=== PATIENT | female | born 1960 | race Caucasian/White ===

== ENCOUNTER 2022-01-25 19:52 | Emergency (ER) | payer BC, SELFPAY ==
--- NOTE | 2022-01-25 19:53 | ED.FEMALEGU ---
HPI - Female Genitourinary General Chief complaint: Urogenital-Female Stated complaint: uti complaint Time Seen by Provider: 01/25/22 19:53 Source: patient Mode of arrival: ambulatory Limitations: no limitations History of Present Illness HPI Narrative: Ms. Shah is a 61-year-old female patient presenting to the clinic today with complaints of possible UTI. She reports that yesterday she developed some burning with urination and some low back pain. Denies any fever or chills. States that the burning was worse today when she got off work Related Data Home Medications Medication Instructions Recorded Confirmed fluoxetine 20 mg tablet 20 mg DAILY 01/25/22 01/25/22 metoprolol tartrate 25 mg tablet 25 mg DAILY 01/25/22 01/25/22 Allergies Allergy/AdvReac Type Severity Reaction Status Date / Time morphine Allergy HIVES Verified 01/25/22 20:06 MACROLIDES Allergy Uncoded 01/25/22 20:06 ERYTHROMYCIN (Generic AdvReac Intermediate NAUSEA/VOMI Uncoded 01/25/22 20:06 Allergy) TING Review of Systems Review of Systems: Pertinent positives per HPI. Patient denies any fever, chills, rash, headache, visual changes, dizziness, cough, runny nose, sore throat, shortness of breath, chest pain, palpitations, nausea, vomiting, diarrhea, constipation, abdominal pain. PMFSH Comments At the time of my signature, I reviewed and agree with the nursing past medical, surgical, social, and family history. There is no relevant family history pertinent to the patient complaint. Exam Narrative: General: Well-developed, obese, in no apparent distress. Head: Normocephalic, atraumatic. Cardio: Regular rate and rhythm, s1 and s2 normal, no murmur appreciated. Resp: Clear to auscultation bilaterally, no rhonchi, rales, wheezing or rubs. Abdomen: Soft, pliable, bowel sounds present in all quadrants, tender to palpation very the bladder, no organomegly, no CVAT tenderness. Course Course Emergency Course: Portions of this record may have been created with voice recognition software. Level of Care: Express Care Visit Vital Signs Vital signs: Vital signs reviewed MDM - Female Genitourinary MDM Narrative Medical decision making narrative: At the time of visit patient is resting comfortably on the exam table. UA is positive for leukocytes, blood, and protein. I will send a prescription for some Macrobid and some Pyridium for the patient. Supportive measures were discussed with the patient she voiced understanding of the discharge instructions and agrees to treatment plan. Differential Diagnosis Differential diagnosis: Likely urinary tract infection and cystitis Discharge Plan Discharge Clinical Impression: Acute cystitis Qualifiers: Hematuria presence: with hematuria Qualified Code(s): N30.01 - Acute cystitis with hematuria Patient Disposition: Home, Self-Care Condition: Stable Instructions: Antibiotic Form, Urinary Tract Infection in Women (ED) Additional Instructions: U/A shows positive protein, blood, and leukocytes. We will send for urine culture Take macrobid and pyridium as directed Increase fluids and stay well hydrated Wipe front to back. May use wet wipes. Avoid tub baths If sexually active- pee before and after intercourse. Wear cotton panties Avoid tight clothing up against the genitals Follow up with your PCP in 1 week if symptoms persist. Prescriptions: New nitrofurantoin macrocrystal 100 mg capsule 100 mg PO Q12H 5 Days Qty: 10 0RF Rx Instructions: must administer with a meal/food phenazopyridine [Pyridium] 200 mg tablet 200 mg PO TID PRN (Reason: pain) Qty: 6 0RF No Action fluoxetine 20 mg tablet 20 mg DAILY metoprolol tartrate 25 mg tablet 25 mg DAILY Follow-up/Referrals: PHYSICIAN,VENEER DRIER TAILER [Primary Care Provider] - Time of Disposition: 20:14 Quality NIHSS Nursing Documentation ED NIHSS nursing documentation: reviewed/agree
[2022-01-25 20:05] VITALS: BP 148/82; PULSE 82; RESP 18; TEMP 36.5; O2SAT 97
== END 2022-01-25 20:18 | disposition home or self-care (01) ==
PROVIDERS: Emergency Provider Nurse Practitioner Family
DX: N30.01 Acute cystitis with hematuria (principal); I10 Essential (primary) hypertension; Z90.711 Acquired absence of uterus with remaining cervical stump
CPT/HCPCS: 81003; 87077; 87086; 87186; 99213; G0463

== ENCOUNTER 2023-09-21 09:41 | Outpatient (CLI) | payer BC, SELFPAY ==
--- NOTE | 2023-09-26 18:33 | WPDHOMESLEEP ---
Sleep Study - Home Unattended Date of Study: 09/21/23 Ordering Provider: Nati Joseph NP Interpreting Provider: Natalie Kendall, DO Home Sleep Study Type: Watch PAT Height: 1.57 m Weight: 83.461 kg Body Mass Index: 33.6 Neck Circumference (inches): 15 [place]: 17 Reason for Sleep Study Daytime hypersomnia Sleep History The patient is a 63-year-old female with hypertension, osteoarthritis, nightmares and anxiety that had a sleep study ordered by her primary care for evaluation sleep apnea. The patient denies awakening from sleep short of breath. She denies awakening at night with heartburn, belching or cough. She occasionally snores but it is rarely loud enough that others complain. She denies having trouble sleeping when she has a cold. She denies waking up gasping for air throughout the night. She denies having breathing problems at night observed by herself or others. She rarely sweats excessively at night. She denies having heart palpitations or irregular heartbeats during the night. She frequently falls asleep during the day but never while driving. She denies sleep paralysis, cataplexy and hypnagogic / hypnopompic hallucinations. She frequently has trouble at school or work due to sleepiness. She denies feeling afraid of going to sleep. She occasionally has nightmares and occasionally remembers her dreams. She constantly has thoughts racing through her mind. She denies feeling sad or depressed. She rarely has anxiety. She rarely has muscular tension. She denies noticing parts of her body jerk. She denies kicking during the night. She rarely has crawling and aching feelings in her legs and never has leg pain during the night. She denies grinding her teeth during sleep and denies awakening with morning jaw pain. She is occasionally bothered by pain during the day and occasionally awakened by pain during the night. She occasionally wakes up feeling stiff in the morning. She constantly wakes up with sore or achy muscles. She constantly wakes up with pain in the neck, spine and other joints. She goes to bed at 11:00 p.m. on both weekdays and weekends. She wakes up 3 times throughout the night to urinate and take out her puppies. She is able to fall back asleep within 10-15 minutes. She wakes up at 5:30 a.m. on weekdays and at 6:00 a.m. on the weekends. She typically gets 6-8 hours of sleep per night. She does not stay in bed after waking up in the morning. She currently lives with her . She will consume caffeinated tea within 2 hours of going to bed. She denies engaging in physical exercise before bedtime. She will watch television before falling asleep. She will take naps in the afternoon or the evening but they are not refreshing. She consumes 2 cups of caffeinated coffee and 2 cups of ice tea per day. She denies tobacco, alcohol and recreational drug use. [facility] Past Medical History Medical History Acute sinusitis Anxiety Arthritis B12 deficiency BMI 32.0-32.9,adult BMI 33.0-33.9,adult Decreased exercise tolerance Dysuria Encounter to establish care Hyperlipidemia Hypersomnia Hypertension Osteoarthritis involving multiple joints on both sides of body Otitis externa Palpitations Prediabetes Screening for diabetes mellitus Snoring Family History Family History Daughter Asthma Depression Anxiety Mother Heart disease Thyroid disease Cancer Father Heart disease Cancer Hypertension Sibling Anxiety Depression Thyroid disease Hypertension Cancer Social History Social History Smoking status: Never smoker Alcohol intake: current Alcohol use details: Rarely Substance use: never Substance use type: does not use Lack of Transportation: No Lack of Food: Never True Current Housing: I Have
[2023-09-26 18:41] VITALS: BMI 33.6
== END 2023-09-25 07:00 | disposition home or self-care (01) ==
PROVIDERS: PCP Nurse Practitioner Family; Visit Provider Nurse Practitioner Family
DX: R06.83 Snoring (principal); G47.33 Obstructive sleep apnea (adult) (pediatric)
CPT/HCPCS: 95800

== ENCOUNTER 2023-10-10 10:02 | Outpatient (CLI) | payer BC, SELFPAY ==
--- NOTE | 2023-10-16 10:17 | WPDHOLTEREM ---
Holter/Event Monitor Holter/Event Monitor Date of procedure: 10/10/23 Holter/Event Procedure: 24 Hr Holter Monitor Indications: Palpitations Conclusion: 1. 24 hour holter monitor on 10/10/23. 2. Underlying rhythm is sinus rhythm. HR range 57-112 bpm; average HR 75 bpm. 3. There are 16 premature supraventricular complexes and 2 supraventricular couplets. No supraventricular tachycardia. 4. There are 93 premature ventricular complexes. No ventricular tachycardia. 5. No sinoatrial or atrioventricular blocks. No significant pauses greater than 2 seconds. 6. Patient reports symptoms of heavy heart beats which demonstrate sinus rhythm, HR range 85-106 bpm.
== END 2023-10-10 10:03 | disposition home or self-care (01) ==
LOC: ANHCARD 10:05
PROVIDERS: PCP Nurse Practitioner Family; Visit Provider Nurse Practitioner Family
DX: R00.2 Palpitations (principal)
CPT/HCPCS: 93225; 93226

== ENCOUNTER 2024-01-22 14:31 | Outpatient (CLI) | payer BC, SELFPAY ==
--- NOTE | ~2024-01-22 | MM_ITS ---
EXAMINATION: MM screening yefri BI w [facility] HISTORY: Screening TECHNIQUE: Craniocaudal and mediolateral oblique 3-D tomosynthesis images were obtained and synthetic 2-D images were generated. CAD analysis was submitted and interpreted. COMPARISON: 11/28/2008 BREAST PARENCHYMAL COMPOSITION: Not dense: There are scattered areas of fibroglandular density. FINDINGS: There is no evidence of suspicious mass, calcification, or architectural distortion to sugg est malignancy in either breast. There has been no suspicious interval change. IMPRESSION: 1. No mammographic evidence of malignancy. 2. Recommend routine screening mammography in one year. BI-RADS Category 1: Negative Reviewed, dictated and finalized at location B.
== END 2024-01-22 14:32 ==
LOC: MICIMG 14:32
PROVIDERS: PCP Nurse Practitioner Family; Visit Provider Nurse Practitioner Family
DX: Z12.31 Encounter for screening mammogram for malignant neoplasm of breast (principal)
CPT/HCPCS: 77063; 77067

== ENCOUNTER 2024-09-10 09:39 | Outpatient (CLI) | payer BC, SELFPAY ==
--- NOTE | ~2024-09-10 | CT_ITS ---
EXAMINATION: CT abdomen pelvis w con DATE: 09/10/2024 10:01 INDICATION: Pelvic and perineal pain. TECHNIQUE: Computed tomography (CT) of the abdomen and pelvis was performed with 100 mL Omnipaque 350 intravenous contrast. Automated exposure control and iterative reconstruction technique were employe d. The dose-length product was 920.10 mGy-cm. COMPARISON: None. FINDINGS: The visualized portions of the lung bases are clear without pneumonia or pleural effusion. The heart size is normal. No pericardial effusion. There is a lap band around the proximal stomach. T he liver, gallbladder, spleen, pancreas, adrenal glands, and kidneys are normal. There are no dilated loops of bowel. The appendix is normal. There are no pathologically enlarged lymph nodes. There is n o free intraperitoneal fluid. There is mild lumbar spondylosis and moderate thoracic spondylosis. The re is mild osteoarthritis of the hips. IMPRESSION: 1. No specific etiology for the patient's symptoms. Reviewed, dictated and finalized at location A.
--- OUTSIDE RECORDS SUMMARY | 2024-09-10 10:36 | XMS_ITS | Referral Summary ---
Author Organization [facility] Address [address] [place] [address] Care Team Providers Care Collection Advisor Name Role Phone Nati Joseph KRISTEN Primary Care Provider [phone] Encounters Date Type Department Care Team Description 08/14/2024 Telephone [facility] Cardiology [address] [facility] 8[address] [place] [address] [place] [address] Hernan Stallings MD from Last 3 Months Allergies Active Allergy Reactions Criticality Noted Date Comments Erythromycin Opioids - Morphine Analogues Medications FLUoxetine (PROzac) 40 mg capsule Take 1 capsule (40 mg total) by mouth daily Active metoprolol tartrate (LOPRESSOR) 25 mg immediate release tablet Take 1.5 tablets (37.5 mg total) by mouth 2 (two) times a day 08/14/2017 Active kqumuhrq-kzr-uj on-FA-vit K-lut 8 mg iron-400 mcg-50 mcg tablet Take 1 tablet by mouth daily Active melatonin 3 mg tablet,disinteg rating Take 6 mg by mouth nightly Active zozsgeav-ykz-vd lic acid-biotin 66.7-1,000 mcg tablet Take 2 tablets by mouth daily Active rosuvastatin (CRESTOR) 20 mg tablet Take 1 tablet (20 mg total) by mouth daily 30 tablet 11 10/23/2023 5 Active Active Problems Problem Noted Date Diagnosed Date Lumbago 08/17/2010 Herniated lumbar intervertebral disc 08/17/2010 Palpitations 01/13/2009 Essential hypertension 01/13/2009 Hyperlipidemia 01/13/2009 Social History Tobacco Use Types Packs/Day Years Used Date Smoking Tobacco: Never Tobacco Cessation:Counseling Given: Not Answered Personal Safety Answer Date Recorded Getting School Help Needed Not on file 09/09 Comments Unknown Sex and Gender Information Value Date Recorded Sex Assigned at Not on file 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 Gender Identity Not on file Sexual Orientation Not on file Last Filed Vital Signs Vital Sign Reading Time Taken Comments Blood Pressure 124/84 10/23/2023 8:46 AM CDT Pulse 67 10/23/2023 8:46 AM CDT Temperature - - Respiratory Rate - - Oxygen Saturation 97% 10/23/2023 8:46 AM CDT Inhaled Oxygen Concentration - - Weight 84 kg (185 lb 4 oz) 10/23/2023 8:46 AM CD T Height 157.5 cm (5' 2 ) 10/23/2023 8:46 AM CDT Body Mass Index 33.88 10/23/2023 8:46 AM CDT Plan of Treatment Not on file Procedures Procedure Name Priority Date/Time Associated Diagnosis Comments SCREENING MAMMOGRAM Routine 03/06/2013 1 1:32 AM CDT from Last 3 Months or Most Recently Relevant to Health Maintenance Results * Screening Mammogram (03/06/2013 11:32 AM CDT) Anatomical Region Laterality Modality Breast N/A Mammography 03/06/2013 11:3 2 AM CDT Narrative 03/07/2013 12:51 PM CDT EMILIA SCHWARTZ M.D. FINAL REPORT ACC# Date Time Exam [id number] Mar 06, 2013 11:32:00 BMV [id number] [place] Screening Mamm Technologist(s): Conchita Durant; ; EXAMINATION: Mammogram Findings: A Full-Field Digital Screening Mammogram was performed. Views obtained: bilateral craniocaudal; bilateral mediolateral oblique. Computer Aided Detection was performed with BuzzStarter.3 version 9.3. There are scattered fibroglandular densities. There is no suspicious abnormality in either breast. IMPRESSION: Annual screening mammography is recommended. OVERALL FINAL ASSESSMENT: BI-RADS CATEGORY 1: Negative. Requested By: Jimmy Soto M.D. Dictated By: EMILIA SCHWARTZ M.D. on Mar 07 2013 12:51P This document has been electronically signed by: EMILIA SCHWARTZ M.D. on Mar 07 2013 12:51P Procedure Note Provider, MD Clinton - 10/08/2016 EMILIA SCHWARTZ M.D. FINAL REPORT ACC# Date Time Exam [id number] Mar 06, 2013 11:32:00 BMV [id number] [place] Screening Mamm Technologist(s): Conchita Durant; ; EXAMINATION: Mammogram Findings: A Full-Field Digital Screening Mammogram was performed. Views obtained: bilateral craniocaudal; bilateral mediolateral oblique. Computer Aided Detection was performed with BuzzStarter.3 version 9.3. There are scattered fibroglandular densities. There is no suspicious abnormality in either breast. IMPRESSION: Annual screening mammography is recommended. OVERALL FINAL ASSESSMENT: BI-RADS CATEGORY 1: Negative. Requested By: Jimmy Soto M.D. Dictated By: EMILIA SCHWARTZ M.D. on Mar 07 2013 12:51P This document has been electronically signed by: EMILIA SCHWARTZ M.D. on Mar 07 2013 12:51P Historical Provider MD ISSA MAMMO PROCEDURES Jackie l Result from Last 3 Months or Most Recently Relevant to Health Maintenance Insurance [facility] ACCESS CHOICE Care Teams Collection Advisor Relationship Specialty Start Date End Date Nati Joseph NP [address] [address] [place] [address] PCP - General Family Medicine 09/10/23
--- OUTSIDE RECORDS SUMMARY | 2024-09-10 10:36 | XMS_ITS | Clinical Summary ---
Author Organization [facility] Address [address] [place] [address] Care Team Providers Care Public Health Educator Name Role Phone Nati Joseph KRISTEN Primary Care Provider [phone] Allergies Active Allergy Reactions Criticality Noted Date Comments Erythromycin Opioids - Morphine Analogues Medications FLUoxetine (PROzac) 40 mg capsule Take 1 capsule (40 mg total) by mouth daily Active metoprolol tartrate (LOPRESSOR) 25 mg immediate release tablet Take 1.5 tablets (37.5 mg total) by mouth 2 (two) times a day 08/14/2017 Active ibrvlscv-gjc-gc on-FA-vit K-lut 8 mg iron-400 mcg-50 mcg tablet Take 1 tablet by mouth daily Active melatonin 3 mg tablet,disinteg rating Take 6 mg by mouth nightly Active vcnfsfqn-qnt-wz lic acid-biotin 66.7-1,000 mcg tablet Take 2 tablets by mouth daily Active rosuvastatin (CRESTOR) 20 mg tablet Take 1 tablet (20 mg total) by mouth daily 30 tablet 11 10/23/2023 5 Active Active Problems Problem Noted Date Diagnosed Date Lumbago 08/17/2010 Herniated lumbar intervertebral disc 08/17/2010 Palpitations 01/13/2009 Essential hypertension 01/13/2009 Hyperlipidemia 01/13/2009 Encounters Date Type Department Care Team Description 08/14/2024 Telephone [facility] Cardiology [address] [facility] 8th [place] [address] [place] [address] Hernan Stallings MD from Last 3 Months Social History Tobacco Use Types Packs/Day Years Used Date Smoking Tobacco: Never Tobacco Cessation:Counseling Given: Not Answered Personal Safety Answer Date Recorded Getting School Help Needed Not on file 09/09 Comments Unknown Sex and Gender Information Value Date Recorded Sex Assigned at Not on file 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 Gender Identity Not on file Sexual Orientation Not on file Obstetrics History Last Filed Vital Signs Vital Sign Reading [...] 10/23/2023 8:46 AM CDT Plan of Treatment Health Maintenance Due Date Last Done Comments Cervical Cancer Screening 1961 Colon Cancer Screening-Colonoscopy 1961 Depression Screening 1961 Hepatitis C Screening 1961 DTaP/Tdap/Td Vaccine (1 - Tdap) 1972 Hepatitis B Screening 1979 Regular Well Visit/Exam 18-64 1979 Zoster Vaccine (1 of 2) 2011 Breast Cancer Screening-Mammogram 09/16/2022 09/16/2021, 09/16/2021, 09/12/2021, Additional history exists Influenza Vaccine (#1) 2024 Pneumococcal vaccine <65 Aged Out No longer eligible based on patient's age to complete this topic Procedures Procedure Name Priority Date/Time Associated Diagnosis Comments SCREENING MAMMOGRAM Routine 03/06/2013 1 1:32 AM CDT from Last 3 Months or Most Recently Relevant to Health Maintenance Results * Screening Mammogram (03/06/2013 11:32 AM CDT) Anatomical Region Laterality Modality Breast N/A Mammography 03/06/2013 11:3 2 AM CDT Narrative 03/07/2013 12:51 PM CDT EMILIA SCHWARTZ M.D. FINAL REPORT ACC# Date Time Exam [id number] Mar 06, 2013 11:32:00 BMV [id number] [place] Screening Mamm Technologist(s): Conchita Durant; ; EXAMINATION: Mammogram Findings: A Full-Field Digital Screening Mammogram was performed. Views obtained: bilateral craniocaudal; bilateral mediolateral oblique. Computer Aided Detection was performed with Prime Focus 1.3 version 9.3. There are scattered fibroglandular densities. [...] M.D. FINAL REPORT ACC# Date Time Exam [id number] Mar 06, 2013 11:32:00 BMV [id number] [place] Screening Mamm Technologist(s): Conchita Durant; ; EXAMINATION: Mammogram Findings: A Full-Field Digital Screening Mammogram was performed. Views obtained: bilateral craniocaudal; bilateral mediolateral oblique. Computer Aided Detection was performed with Prime Focus 1.3 version 9.3. There are scattered fibroglandular densities. [...] Most Recently Relevant to Health Maintenance Insurance [employer] ACCESS CHOICE Care Teams Public Health Educator Relationship Specialty Start Date End Date Nati Joseph NP [address] [facility] [address] [place] [id number] PCP - General Family Medicine 09/10/23
== END 2024-09-10 09:40 | disposition home or self-care (01) ==
PROVIDERS: PCP Nurse Practitioner Family; Visit Provider Nurse Practitioner Family
DX: R10.2 Pelvic and perineal pain (principal); R10.30 Lower abdominal pain, unspecified
CPT/HCPCS: 74177; Q9967

== ENCOUNTER 2025-04-24 15:26 | Outpatient (CLI) | payer BC, SELFPAY ==
--- NOTE | ~2025-04-24 | XR_ITS ---
EXAM/PROCEDURE: XR sacrum coccyx min 2V HISTORY: M53.3 - Sacrococcygeal disorders, not elsewhere classified COMPARISON: None available. TECHNIQUE: Sacrococcygeal x-rays FINDINGS: No acute or aggressive bony or soft tissue process seen in the sacrococcygeal bones. Degenerative changes present throughout the visualized portion of lumbar spine with what appears to be mild multilevel anterolisthesis, including L2 on L3 and L3 on L4. Sclerotic changes are present in the posterior elements throughout the mid and lower lumbar spine as well. IMPRESSION: No discrete abnormality seen in the sacrococcygeal bones. Multilevel degenerative changes noted in the visualized portions of the lumbar spine. Reviewed, dictated and finalized at location A. R [facility] IMPRESSION: No discrete abnormality seen in the sacrococcygeal bones. Multilevel degenerati ve changes noted in the visualized portions of the lumbar spine.
--- OUTSIDE RECORDS SUMMARY | 2025-04-24 15:29 | XMS_ITS | Clinical Summary ---
Author Organization [facility] Address [address] [place] [address] Care Team Providers Care Sterile Processing Manager Name Role Phone Nati Joseph KRISTEN Primary Care Provider [phone] Allergies Active Allergy Reactions Criticality Noted Date Comments Erythromycin Opioids - Morphine Analogues Medications FLUoxetine (PROzac) 40 mg capsule Take 1 capsule (40 mg total) by mouth daily Active metoprolol tartrate (LOPRESSOR) 25 mg immediate release tablet Take 1.5 tablets (37.5 mg total) by mouth 2 (two) times a day 08/14/2017 Active qmcqopdb-eyp-ld on-FA-vit K-lut 8 mg iron-400 mcg-50 mcg tablet Take 1 tablet by mouth daily Active melatonin 3 mg tablet,disinteg rating Take 6 mg by mouth nightly Active qdbkfxzp-snu-df lic acid-biotin 66.7-1,000 mcg tablet Take 2 tablets by mouth daily Active rosuvastatin (CRESTOR) 20 mg tablet Take 1 tablet (20 mg total) by mouth daily 30 tablet 11 10/23/2023 Active Active Problems Problem Noted Date Diagnosed Date Lumbago 08/17/2010 Herniated lumbar intervertebral disc 08/17/2010 Palpitations 01/13/2009 Essential hypertension 01/13/2009 Hyperlipidemia 01/13/2009 Encounters Date Type Department Care Team Description 04/08/2025 Telephone [facility] Medicine Cardiology [address] [facility] [address] [place] [address] Hernan Stallings MD Med Refill 04/07/2025 Telephone [facility] [address] [facility] 8th [place] [address] [place] [address] Hernan Stallings MD from Last 3 Months Social History Tobacco Use Types Packs/Day Years Used Date Smoking Tobacco: Never Tobacco Cessation:Counseling Given: Not Answered Personal Safety Answer Date Recorded Getting School Help Needed Not on file 09/09 Comments Unknown Sex and Gender Information Value Date Recorded Sex Assigned at Not on file 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 FINAL REPORT ACC# Date Time Exam [id number] Mar 06, 2013 11:32:00 BMV [id number] [place] Screening Mamm Technologist(s): Conchita Durant; ; EXAMINATION: Mammogram Findings: A Full-Field Digital Screening Mammogram was performed. Views obtained: bilateral craniocaudal; bilateral mediolateral oblique. Computer Aided Detection was performed with [employer] Systems 1.3 version 9.3. There are scattered fibroglandular [...] M.D. FINAL REPORT ACC# Date Time Exam [id number] Mar 06, 2013 11:32:00 BMV [id number] [place] Screening Mamm Technologist(s): Conchita Durant; ; EXAMINATION: Mammogram Findings: A Full-Field Digital Screening Mammogram was performed. Views obtained: bilateral craniocaudal; bilateral mediolateral oblique. Computer Aided Detection was performed with On[employer] Entelo 1.3 version 9.3. There are scattered fibroglandular densities. There is no suspicious abnormality in either breast. IMPRESSION: Annual screening mammography is recommended. OVERALL FINAL ASSESSMENT: BI-RADS CATEGORY 1: Negative. Requested By: Jimmy Soto M.D. Dictated By: EMILIA SCHWARTZ M.D. on Mar 07 2013 12:51P This document has been electronically signed by: MEILIA SCHWARTZ M.D. on Mar 07 2013 12:51P us Historical Provider MD ISSA MAMMO PROCEDURES Jackie l Result from Last 3 Months or Most Recently Relevant to Health Maintenance Insurance [employer] ACCESS CHOICE Care Teams Sterile Processing Manager Relationship Specialty Start Date End Date Nati Joseph NP [address] [facility] [address] [place] [id number] PCP - General Family Medicine 09/10/23
--- OUTSIDE RECORDS SUMMARY | 2025-04-24 15:29 | XMS_ITS | Data Portability ---
Author Organization [employer] [facility] , [facility] Address [address] [place] [address] Assessment No assessment recorded. Plan of Treatment Reminders Order Date Submit Date Provider Last Modified By Organization Details Last Modified Time Details Appointments None recorded. Lab bacterial vaginosis + vaginitis panel, vaginal 2024 025 [facility], [address] [place], [address], 5 08:35:13 HPV E6+E7 mRNA, qualitative PCR, cervix 2024 025 [facility], [address] [place], [address], 5 15:39:46 pap, LB 2024 025 [facility], [address] [facility], [place], [address], 5 15:18:40 Referral None recorded. Procedures None recorded. Surgeries None recorded. Imaging MAMMO, screening, digital, bilateral 2024 025 [facility] ([facility]), [address] [place], [address], 5 17:18:18 Medication Orders None recorded. Patient TargetsNo targets recorded. Patient Instructions Encounter Date Encounter Id Patient Instructions Last Modified By Organization Details Last Modified Time 09/22/2024 [id number] body mass index: care instructions Not available 09/22/2024 10:33:40 A healthy lifestyle: care instructions Not available 09/22/2024 10:33:40 Following the [employer] Food Guide: Care Instructions Not available 09/22/2024 10:33:40 exercise program : getting started Not available 09/22/2024 10:33:40 mammogram: about this test Not available 09/22/2024 10:33:40 contraception information Not available 09/22/2024 10:33:40 Reason for Referral None Reported. Results Created Date Observation Date Name Description Value Unit Range Abnormal Flag Note LastModifiedBy Organization Detail LastModifiedTime 09/23/1909/23/2024 HPV HIGH RISK HPV high risk Negati ve negati ve normal The HPV High Risk assay is inten ded for use as co-te sting with cytol ogy and not as a subst itute for regul ar cervi patrica cytol ogy scree mukul. This assay is not inten ded for use as a scree mukul devic e for women under age 30 with simon l cervi patrica cytol ogy. Not Available [facility] [address] [place], [address], 09/23/2024 15:39:46 09/23/19 25 09/25/2024 THINP REP TIS PAP clinical information: normal None given Not Available [facility] [place] [address] [place], [address], 09/25/2024 15:18:40 09/23/19 25 09/25/2024 THINP REP TIS PAP LMP: normal NONE GIVEN Not Available [facility] [address] [place] [address] [place], [address], 09/25/2024 15:18:40 09/23/19 25 09/25/2024 THINP REP TIS PAP prev. Pap: normal NONE GIVEN Not Available [facility] [address] [place] [address] [place], [address], 09/25/2024 15:18:40 09/23/19 25 09/25/2024 THINP REP TIS PAP prev. BX: normal NONE GIVEN Not Available [address] [address] [place], [address], 09/25/2024 15:18:40 09/23/19 25 09/25/2024 THINP REP TIS PAP source: normal Cervi x Not Available [address] [address] [place], [address], 09/25/2024 15:18:40 09/23/19 25 09/25/2024 THINP REP TIS PAP statement of adequacy: normal Satis facto ry for evalu ation . Endoc ervic al/tr ansfo rmati on zone compo nent prese nt. Not Available [address] [address] [place], [address], 09/25/2024 15:18:40 09/23/19 25 09/25/2024 THINP REP TIS PAP interpretati on/result: normal Cytol ogy Resul ts: Negat jabier for intra epith elial lesio n or malig yosef . Not Available [address] [address] [place], [address], 09/25/2024 15:18:40 09/23/19 25 09/25/2024 THINP REP TIS PAP comment: normal This Pap test has been evalu ated with compu ter mike gwendolyn techn ology . Not Available [address] [address] [place], [address], 09/25/2024 15:18:40 09/23/19 25 09/25/2024 THINP REP TIS PAP cytotechnolo gist: normal MMD, CT( CP) CT Scree mukul Locat ion: [place] [address] [address] [facility] , [place] [address] Not Available [address] [address] [place], [address], 09/25/2024 15:18:40 09/23/19 25 09/25/2024 THINP REP TIS PAP comment EXPLA NATOR Y NOTE: The Pap is a scree mukul test for cervi patrica cance r. It is not a diagn ostic test and is subje ct to false negat jabier and false posit jabier resul ts. It is most relia ble when a satis facto ry sampl e, regul inga obtai hoda, is submi tted with relev ant clini patrica findi ngs and histo ry, and when the Pap resul t is evalu ated along with histo anne-marie and curre nt clini patrica infor matio n. Not Available [facility] [address], [place], [address], 09/25/2024 15:18:40 09/23/19 25 09/25/2024 VAGIN ITIS PANEL bacterial vaginosis BV POS negati ve abnormal Not Available [address], [address], 09/26/2024 08:35:13 09/23/19 25 09/25/2024 VAGIN ITIS PANEL kati species C. spp neg negati ve normal Not Available [facility] [address] [place] [address], [address], 09/26/2024 08:35:13 09/23/19 25 09/25/2024 VAGIN ITIS PANEL kati glabrata C. gla neg negati ve normal Not Available [facility] [address] [place] [address], [address], 09/26/2024 08:35:13 09/23/19 25 09/25/2024 VAGIN ITIS PANEL trichomonas vaginalis CV/TV TRICH neg negati ve normal Not Available [facility] [address] [place], [address], 09/26/2024 08:35:13 04/16/20 25 04/03/2025 MAMMO , scree mukul, digit al, bilat eral No observ ation record ed. [facility] ([facility]) [address] [place], [address], 04/16/2025 17:45:31 Result Notes None recorded. Procedures Surgical History Date Name Laterality Status Provider Name and Address Organization Details Recorded Time 06/18/19 24 Most Recent Mammogram completed [facility] 09/22/2024 09:59:11 06/18/19 22 Date of Last Pap Smear completed [facility]/22/2024 09:59:11 06/18/19 18 Most Recent Bone Density completed [facility] IV 09/22/2024 09:59:11 Colonoscopy completed [facility] IV 09/22/2024 09:59:12 D & C completed [facility] 09/22/2024 09:59:12 Vaginal hysterectomy completed [facility] 09/22/2024 09:59:12 Endometrial Ablation completed [facility] 09/22/2024 09:59:12 Removal of Ovaries completed [facility] 09/22/2024 09:59:12 C Section completed [facility] 09/22/2024 09:59:12 Imaging Results None recorded. Procedure Notes None recorded. Medical Equipment None Reported. Allergies Allergen ID Allergen Name Allergen Category Reaction Reaction Severity Criticality Documentation Date Start Date Code Code System Note Provider Name and Address Organization Details Recorded Time 248461 morphine medicatio n Not available Not available Not available 09/22/2024 7052 RxNorm [facility] 09:59:11 795529 Substance with morphinan structure and opioid receptor agonist mechanism of action (substanc e) medicatio n Not available Not available Not available 09/22/2024 82641 9000 SNOMED EBONI MADRID NP [address] [place], [address], [facility] 5 10:07:42 043015 erythromy césar medicatio n Not available Not available Not available 09/22/2024 4053 RxNorm EBONI MADRID NP [address] [place], [address], [facility] IV 10:07:44 Medications Name Sig Start Date Stop Date Status Note LastModified by Organization Details LastModified Time fluoxetine 40 mg capsule TAKE 1 CAPSULE BY MOUTH DAILY active Not Available Not Available No t Available fluconazole 150 mg tablet TAKE 1 TABLET BY MOUTH EVERY DAY FOR 1 DAY active Not Available Not Available No t Available metoprolol succinate ER 100 mg tablet,exte nded release 24 hr TAKE 1 TABLET BY MOUTH DAILY active Not Available Not Available No t Available metronidazo le 500 mg tablet TAKE 1 TABLET BY MOUTH EVERY 12 HOURS FOR 7 DAYS active Not Available Not Available No t Available amoxicillin 875 mg-potassiu m clavulanate 125 mg tablet TAKE 1 TABLET BY MOUTH EVERY 12 HOURS 09/22 completed Not Available Not Available Not Available metoprolol tartrate 25 mg tablet TAKE 1 AND 1/2 TABLETS BY MOUTH TWICE DAILY 09/22 completed Not Available Not Available Not Available nitrofurant oin monohydrate /macrocryst als 100 mg capsule TAKE 1 CAPSULE BY MOUTH EVERY 12 HOURS 09/22 completed Not Available Not Available Not Available Zepbound 2.5 mg/0.5 mL subcutaneou s pen injector ADMINISTE R 2.5 MG UNDER THE SKIN WEEKLY FOR 4 WEEKS active Not Available Not Available No t Available Vitals Date Recorded Body height Body mass index (BMI) Body weight Systolic And Diastolic Provider Name and Address Organization Details Last Updated DateTime 09/22/2024 157.48 cm 32.9 kg/m2 13467.63 g 128/80 mm[Hg] Cristel Kim [facility] IV 09/22/2024 10:02:01 Social History Question Answer Notes LastModified by Organizat ion Details LastModified Time Tobacco Smoking Status Never Smoker Cristel Kim [facility], [facility] IV 09/22/2024 09:59:12 If You Are , What Was Your Level Of Alcohol Consumption Prior To ? None [email or web address] Information not available 09/22/2024 How Many Years Have You Consumed Alcohol? 30 [email or web address] Information not available 09/22/2024 Are You Blind Or Do You Have Difficulty Seeing? No [email or web address] Information not available 09/22/2024 Are You Deaf Or Do You Have Serious Difficulty Hearing? No [email or web address] Information not available 09/22/2024 What Type Of Diet Are You Following? REGULAR [email or web address] Information not available 09/22/2024 What Is The Highest Grade Or Level Of School You Have Completed Or The Highest Degree You Have Received? JW08429-3 [email or web address] Information not available 09/22/2024 How Many Children Do You Have? 3 [email or web address] Information not available 09/22/2024 Are There Any Occupational Health Risks Where You Work? No [email or web address] Information not available 09/22/2024 What Is Your Relationship Status? [email or web address] Information not available 09/22/2024 Are You Sexually Active? Yes [email or web address] Information not available 09/22/2024 Sex: Unknown Functional Status Question Answer Note LastModified by Organizat ion Details LastModified Time How many times per week do you consume alcohol? Less than 1 time per week [email or web address] Information not available 09/22/2024 Do you use any illicit or recreational drugs? No [email or web address] Information not available 09/22/2024 Do you or have you ever used any other forms of tobacco or nicotine? No [email or web address] Information not available 09/22/2024 What is your level of alcohol consumption? Occasional [email or web address] Information not available 09/22/2024 Are you currently employed? Yes [email or web address] Information not available 09/22/2024 What is your exercise level? Occasional [email or web address] Information not available 09/22/2024 Mental Status None recorded. Family History Relationship Description Onset Age of this Age Resolved Age Notes LastModified by Organization Details LastModified Time Mother Hyperthyroid ism [email or web address] Not available 2024 09:59:11 Mother Depressive disorder [email or web address] Not available 2024 09:59:11 Mother Malignant neoplasm of lung [email or web address] Not available 2024 09:59:11 Mother Malignant neoplasm of colon [email or web address] Not available 2024 09:59:11 Mother Hypertensive disorder [email or web address] Not available 2024 09:59:11 Brother Hypercholest erolemia [email or web address] Not available 2024 09:59:11 Brother Malignant neoplastic disease [email or web address] Not available 04/07/ 2025 09:59:11 Brother Hypertensive disorder [email or web address] Not available 2024 09:59:11 Sister Hypercholest erolemia [email or web address] Not available 2024 09:59:11 Sister Hyperthyroid ism [email or web address] Not available 2024 09:59:11 Sister Depressive disorder [email or web address] Not available 2024 09:59:11 Sister Hypertensive disorder Not available 2024 09:59:11 Father Hypercholest erolemia Not available 2024 09:59:11 Father Myocardial infarction [email or web address] Not available 09/22 09:59:11 Father Malignant neoplastic disease [email or web address] Not available 2024 09:59:11 Father Hypertensive disorder [email or web address] Not available 2024 09:59:11 Medical History Condition Response Incontinence Y High Blood Pressure Y Arthritis Y High Cholesterol Y Frequent Urinary Tract infections Y Fibromyalgia Y Gynecological History Statement/Question Response Date of Last Colonoscopy Date of LMP 06/18/2011 Most Recent Bone Density 06/18/2017 Date of Last Pap Smear 06/18/2021 Most Recent Mammogram 06/18/2023 Current Control Method Hysterectom y Age at Menarche 12 Obstetrics History GPAL:G 3 P 3 0 0 3 Type Value Full Term 3 Living 3 Total 3 Past Encounters Encounter ID Performer Location Encounter Start Date Encounter Closed Date Diagnosis/Indication Diagnosis SNOMED-CT Code Diagnosis ICD10 Code Diagnosis IMO Codes Diagnosis Note [id number] EBONI MADRID NP [facility] [address] [place] [address] 09/22/2024 09:56:55 09/22/2024 11:20:37 Gynecologic examination 00608718 Z01.419 64 y.o. here for annual exam.- Pap - Routine labs done with PCP - Mammo rx provided - Colonoscop y done, can continue q10 years screens - DEXA at 66 - Depression screen NEG - BMI counseling , diet and exercise reviewed - RTO for annual or PRN Screening for malignant neoplasm of cervix 199657633 Z12.4 ASCCP guidelines reviewed with patient. Pap Hx: pap collected today. Pt states understand ing and is amenable to POC. Screening for malignant neoplasm of breast 505481268 Z12.31 Pt educated on breast cancer screening guidelines , and discussed recommenda luis a for scheduling imaging at hospital of her choice. Reviewed recommenda tion to have imaging done at same facility if possible as previous screenings . Pt states understand ing of POC. Depression screening 171 652838 Z13.31 refer to intake screening Contracept ion education 981932784 Z30.09 Contracept jabier counseling : Discussed options including OCPs, NuvaRing, Nexplanon, hormonal and copper IUDs. Discussed risks, efficacy, noncontrac eptive benefits, and side effects of each option, including risk of VTE with hormonal contracept ion and uterine perforatio n, expulsion, infection with IUD. Acute vaginitis 30751299 N76.0 28387 Vaginal dryness 79322530 N89.8 284865 Discussed vaginal estrogen, DHEA supplement ation. Will plan to use lubricant (rec coconut oil, astroglide or slippery stuff). Vaginal Dryness handout given to patient. Female gen ital organ symptoms 302465244 R10.2 [id number] Patient with recent UTI that was confirmed cured with PCP. patient also had ABD imaging due to the pressure with no abnormal findings per the pt. Increased frequency of urination 956606253 R35.0 493682 Fluid management : Drinking too much or too little fluid can make incontinen ce worse. You can try cutting back on fluids if you drink large amounts. Scheduled voiding: Emptying your bladder at regular intervals can help prevent stress leakage and urgency incontinen ce. You can keep a bladder diary to help you determine when you usually leak and how often you should go to the bathroom. Weight loss: If you are overweight or obese, losing weight can help with urinary incontinen ce. Diet: You can try avoiding bladder irritants like caffeine, alcohol, acidic foods, spicy foods, chocolate, artificial sweeteners , and carbonated and citrus beverages. You can also try eating more fiber to prevent constipati on. Pelvic floor exercises: You can try pelvic floor exercises to help with urinary incontinen ce. Smoking: Smoking can increase the risk of incontinen ce because coughing strains the pelvic floor muscles. Lifting: You can try to avoid lifting heavy objects Health Concerns Section Related Observation LastModified by Organization Detai ls LastModified Time None Recorded Concern Status LastModified by Organization Details LastModified Time None Recorded Advance Directives Directive None Recorded Payers Insurance Date Sequence Insurance Name Policy Number Policy Goins Covered Member ID Goins Member ID Guarantor Name 04/16/2025 1 [employer] [id number] Umu Shah [id number] Umu Shah Notes Date Note Type Note Provider Name and Address Organization Details Recorded Time 09/22/2024 text/html Annual GYNReport ed by PatientROS as noted in the HPI Umu is a 64yo new pt presents WWE. Last pap:2020. Pt had a partial Hysterectomy. Last mammogram: 2023. Last colon cancer screening: Couple yrs ago. Pt has concerns. PHQ is 11 EBONI MADRID, KRISTEN [address] [facility], [place], [address], [facility] 09/22/2024 10:53:54 OBGyn Episode Ob Episode Information Episode Created Date Number of Fetuses Patient Bloodtype Patient rh Status Prepregnancy Weight lbs Domestic Partner Domestic Partner Phone Father Name Supervisor Order Takers Status 09/20/19 25 1 DELETED Fetus Data First Name Last Name Admitted to NICU Weight (g) Sex Living Outcome Pediatric Complications Fetus ID Race Codes Race Delivery Type [id number] Juan Diego Calculation Initial Juan Diego Date Initial Exam Date Initial Exam Provider Initial Ultrasound Date Last Menstrual Period Date Ultra Sound Weeks Gestation 09/19/2024 0 Eighteen To Twenty Week Juan Diego Update Ultra Sound Date Fundal Height At Umbil Quickening Date Ultra Sound Latest Weeks Gestation Final Juan Diego Confirmed By Final Juan Diego Confirmed Date Final Juan Diego Date Ultra Sound Latest Days Gestation 0 0 Menstrual History Last Menstrual Date Menses Monthly On Bcp Conception Prior Menses Frequency Hcg Plus Date Menarche Onset Age Delivery Information Delivery Date Delivery Type Labor Anesthesia Weeks Gestation Incision Type Labor Labor Length Hrs Delivered By Post Complications Tubal Sterilization Discharge Date Comments Discharge Information Feeding Method Contraceptive Method Maternal HG B and HCT Levels
--- OUTSIDE RECORDS SUMMARY | 2025-04-24 15:29 | XMS_ITS | Encounter Summary ---
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 Role Phone Nati Joseph NP Primary Care Provider [phone] Encounter Details Date Type Department Care Team (Late st Contact Info) Description 04/07/2025 Telephone [facility] Medicine Cardiology [address] [facility] Advanced Medicine 8th [place] [address] [place] [address] Hernan Stallings MD [address] [facility] [address] [place] [address] Social History Tobacco Use Types Packs/Day Years Used Date Smoking Tobacco: Never Personal Safety Answer Date Recorded Getting School Help Needed Not on file 09/09 Comments Unknown Sex and Gender Information Value Date Recorded Sex Assigned at Not on file Legal Sex Female 11:[address] INSPECTOR Gender Identity Not on file Sexual Orientation Not on file documented as of this encounter Miscellaneous Notes * Telephone Encounter - Madhuri Hatch - 04/07/2025 10:52 AM CDT LMOR @ [phone] to see if pt wants to schedule with Dr. Stallings or [facility]ER, or see if pt is seeing adifferent doctor. * Telephone Encounter - Neo Sadler RMA - 04/07/2025 9:20 AM CDT Patient needs an appointment to get refills * Telephone Encounter - Neo Sadler RMA - 04/07/2025 9:17 AM CDT Requested Prescriptions Pending Prescriptions Disp Refills rosuvastatin (CRESTOR) 20 mg tablet 30 tablet 11 Sig: Take 1 tablet (20 mg total) by mouth daily Last provider visit: 10/23/23 Next provider visit: unknown date Preferred pharmacy: [id number] - [place] - [address] [facility] [address] [facility] [address] Was med refilled or sent back to Provider Pool for clarification? REFUSED FYI * Telephone Encounter - Haydee Cope - 04/07/2025 9:00 AM CDT Chandrakant Per pharmacy, pt is out of the rosuvastatin 20 mg. Pls send to [facility] [place] ([place]) [place] documented in this encounter Plan of Treatment Not on file documented as of this encounter Visit Diagnoses Not on filedocumented in this encounter Care Teams Water Plant Maintenance Mechanic Relationship Specialty Start Date End Date Nati Joseph NP [address] [facility] [address] [place] [address] PCP - General Family Medicine 09/10/23 documented as of this encounter
--- OUTSIDE RECORDS SUMMARY | 2025-04-24 15:29 | XMS_ITS | Clinical Summary ---
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 Name Role Phone Nati Andrews Primary Care Provider Encounters Date Type Department Care Team Description 04/03/2025 10:00 AM CDT - 04/03/2025 11:59 PM CDT Hospital Encounter [facility] [place] [address] Vic Oviedo FNP Discharge Disposition: Home or Self Care (Routine Discharge) 04/03/2025 Travel 02/09/2025 7:45 AM CDT - 02/09/2025 11:59 PM CDT Hospital Encounter [facility] [place] [address] Nati Andrews APNP Discharge Disposition: Home or Self Care (Routine Discharge) 02/09/2025 Travel from Last 3 Months Social History Tobacco Use Types Packs/Day Years Used Date Smoking Tobacco: Never Assessed Comments Unknown Sex and Gender Information Value Date Recorded Sex Assigned at Female 02/04/2025 8:27 AM CDT Legal Sex Female 7:06 PM CDT Gender Identity Not on file Sexual Orientation Not on file Plan of Treatment Health Maintenance Due Date Last Done Comments Cervical Cancer Screening Pa p Smear (Age 30 to 64) Every 3 Years 1961 Colorectal Cancer Screening Colonoscopy (10 Years) 1961 Annual Physical 1964 Hepatitis C 1979 DTaP, Tdap and Td Vaccines ( 1 - Tdap) 1980 Cervical Cancer Screening Pa p with HPV Testing (Age 30 to 64) Every 5 Years 1991 Cervical Cancer Screening wi th HPV 1991 Pneumococcal Vaccine: 50+ Years (1 of 1 - PCV) 2011 Zoster Vaccines (1 of 2) 2011 Mammogram Screening 09/17/2023 09/16/2021, 09/12/2021, 11/25/2018 COVID-19 Vaccine (2 - 2024-2 6 season) 2025 07/20/2024 Influenza Adult (#1) 2025 07/20/2024 RSV Immunization or 60+ Years (1 - 1-dose 75+ series) 2036 Hepatitis A Vaccines Aged Out No long er eligible based on patient's age to complete this topic Meningococcal B Vaccine Aged Out No l onger eligible based on patient's age to complete this topic Meningococcal Vaccine Aged Out No yg kailey eligible based on patient's age to complete this topic RSV Immunizations Under 20 Months Aged Out No longer eligible b ased on patient's age to complete this topic Procedures Procedure Name Priority Date/Time Associated Diagnosis Comments XR FOOT RT 2V Routine 04/03/2025 10:31 AM CDT Multiple joint pain XR FOOT LT 2V Routine 04/03/2025 10:31 AM CDT Multiple joint pain XR ANKLE RT 2V Routine 04/03/2025 10:31 AM CDT Multiple joint pain XR ANKLE LT 2V Routine 04/03/2025 10:31 AM CDT Multiple joint pain XR WRIST RT 2V Routine 04/03/2025 10:31 AM CDT Multiple joint pain XR WRIST LT 2V Routine 04/03/2025 10:31 AM CDT Multiple joint pain XR HAND RT 2V Routine 04/03/2025 10:31 AM CDT Multiple joint pain XR HAND LT 2V Routine 04/03/2025 10:31 AM CDT Multiple joint pain XR SI JOINTS Routine 04/03/2025 10:31 AM CDT Multiple joint pain US SOFT TISS LOW BACK OR ABD WALL Routine 02/09/2025 8:21 AM CDT Generalized intra-abdominal and pelvic swelling, mass and lump from Last 3 Months Results * XR ANKLE RT 2V (04/03/2025 10:31 AM CDT) Anatomical Region Laterality Modality Ankle Radiographic Evie ging 04/08/2025 2:58 PM CDT Impressions 04/08/2025 3:00 PM CDT IMPRESSION: 1. No acute abnormality. 2. Arthritic changes as described. Ordered By: VIC OVIEDO Interpreted By: Preet Escobedo MD, 04/08/2025 2:58 PM Narrative 04/08/2025 3:[address] PM [address] [address] Examination: XR ANKLE RT 2V, XR FOOT RT 2V Exam time: 04/03/2025 10:11 AM Clinical history: Multiple joint pain Comparison: No prior exam Technique: AP and lateral views right ankle. AP and lateral views right foot. Images obtained without weightbearing. Findings: Forefoot and hindfoot alignment is within normal limits. Ankle mortise appears unremarkable. Tibiotalar and subtalar joints appear unremarkable. There is joint space loss with some hypertrophic change involving the navicular-cuneiform and the first through fourth tarsal-metatarsal joints. No evidence of fracture or acute osseous abnormality. No evidence of focal bone lesions or periosteal reactions. Accessory ossification adjacent to the fifth metatarsal head. Procedure Note Preet Escobedo MD - 04/08/[address] [facility] [address] Examination: XR ANKLE RT 2V, XR FOOT RT 2V Exam time: 04/03/2025 10:11 AM Clinical history: Multiple joint pain Comparison: No prior exam Technique: AP and lateral views right ankle. AP and lateral views rightfoot. Images obtained without weightbearing. Findings: Forefoot and hindfoot alignment is within normal limits. Ankle mortise appears unremarkable. Tibiotalar and subtalar joints appearunremarkable. There is joint space loss with some hypertrophic change involving thenavicular-cuneiform and the first through fourth tarsal-metatarsal joints.No evidence of fracture or acute osseous abnormality. No evidence of focalbone lesions or periosteal reactions. Accessory ossification adjacent tothe fifth metatarsal head. IMPRESSION: 1. No acute abnormality. 2. Arthritic changes as described. Ordered By: VIC OVIEDO Interpreted By: Preet Escobedo MD, 04/08/2025 2:58 PM Vic Oviedo ASSISTANT FARM OPERATIONS MANAGER GENERAL IMAGING Final Result * XR ANKLE LT 2V (04/03/2025 10:31 AM CDT) Anatomical Region Laterality Modality Ankle Radiographic Evie ging 04/08/2025 3:00 PM CDT Impressions 04/08/2025 3:01 PM CDT IMPRESSION: 1. No acute abnormality identified. 2. Degenerative changes as described. Ordered By: VIC OVIEDO Interpreted By: Preet Escobedo MD, 04/08/2025 3:00 PM Narrative 04/08/2025 3:01 PM CDT [address] [address] Examination: XR ANKLE LT 2V, XR FOOT LT 2V Exam time: 04/03/2025 10:11 AM Clinical history: Multiple joint pain Comparison: No prior exam Technique: AP and lateral views left ankle. AP and lateral views left foot. Images obtained without weightbearing. Findings: Ankle mortise appears unremarkable. Tibiotalar and subtalar joints appear unremarkable. No evidence of fracture or acute osseous abnormality involving the left distal tibia, fibula, or about the left ankle. Minimal plantar and Achilles calcaneal spurring. Hypertrophic spurring dorsal aspect midfoot consistent with degenerative change involving the second through fourth tarsal-metatarsal joints. No evidence of fracture or acute osseous abnormality throughout the left foot. No evidence of abnormal soft tissue densities. Procedure Note Preet Escobedo MD - 04/08/[address] [address] Examination: XR ANKLE LT 2V, XR FOOT LT 2V Exam time: 04/03/2025 10:11 AM Clinical history: Multiple joint pain Comparison: No prior exam Technique: AP and lateral views left ankle. AP and lateral views leftfoot. Images obtained without weightbearing. Findings: Ankle mortise appears unremarkable. Tibiotalar and subtalarjoints appear unremarkable. No evidence of fracture or acute osseousabnormality involving the left distal tibia, fibula, or about the leftankle. Minimal plantar and Achilles calcaneal spurring. Hypertrophicspurring dorsal aspect midfoot consistent with degenerative changeinvolving the second through fourth tarsal-metatarsal joints. No evidenceof fracture or acute osseous abnormality throughout the left foot. Noevidence of abnormal soft tissue densities. IMPRESSION: 1. No acute abnormality identified. 2. Degenerative changes as described. Ordered By: VIC OVIEDO Interpreted By: Preet Escobedo MD, 04/08/2025 3:[address] [facility] GENERAL IMAGING Final Result * XR FOOT RT 2V (04/03/2025 10:31 AM CDT) Anatomical Region Laterality Modality Foot Radiographic Evie ging 04/08/2025 2:58 PM CDT Impressions 04/08/2025 3:00 PM CDT IMPRESSION: 1. No acute abnormality. 2. Arthritic changes as described. Ordered By: VIC OVIEDO Interpreted By: Preet Escobedo MD, 04/08/2025 2:58 PM Narrative 04/08/2025 3:00 PM CDT [place] [address] Examination: XR ANKLE RT 2V, XR FOOT RT 2V Exam time: 04/03/2025 10:11 AM Clinical history: Multiple joint pain Comparison: No prior exam Technique: AP and lateral views right ankle. AP and lateral views right foot. Images obtained without weightbearing. Findings: Forefoot and hindfoot alignment is within normal limits. Ankle mortise appears unremarkable. Tibiotalar and subtalar joints appear unremarkable. There is joint space loss with some hypertrophic change involving the navicular-cuneiform and the first through fourth tarsal-metatarsal joints. No evidence of fracture or acute osseous abnormality. No evidence of focal bone lesions or periosteal reactions. Accessory ossification adjacent to the fifth metatarsal head. Procedure Note Preet Escobedo MD - 04/08/[address] [address] Examination: XR ANKLE RT 2V, XR FOOT RT 2V Exam time: 04/03/2025 10:11 AM Clinical history: Multiple joint pain Comparison: No prior exam Technique: AP and lateral views right ankle. AP and lateral views rightfoot. Images obtained without weightbearing. Findings: Forefoot and hindfoot alignment is within normal limits. Ankle mortise appears unremarkable. Tibiotalar and subtalar joints appearunremarkable. There is joint space loss with some hypertrophic change involving thenavicular-cuneiform and the first through fourth tarsal-metatarsal joints.No evidence of fracture or acute osseous abnormality. No evidence of focalbone lesions or periosteal reactions. Accessory ossification adjacent tothe fifth metatarsal head. IMPRESSION: 1. No acute abnormality. 2. Arthritic changes as described. Ordered By: VIC OVIEDO Interpreted By: Preet Escobedo MD, 04/08/2025 2:58 PM Vic Oviedo ASSISTANT FARM OPERATIONS MANAGER GENERAL IMAGING Final Result * XR FOOT LT 2V (04/03/2025 10:31 AM CDT) Anatomical Region Laterality Modality Foot Radiographic Evie ging 04/08/2025 3:00 PM CDT Impressions 04/08/2025 3:01 PM CDT IMPRESSION: 1. No acute abnormality identified. 2. Degenerative changes as described. Ordered By: VIC OVIEDO Interpreted By: Preet Escobedo MD, 04/08/2025 3:00 PM Narrative 04/08/2025 3:01 PM CDT [address] [address] Examination: XR ANKLE LT 2V, XR FOOT LT 2V Exam time: 04/03/2025 10:11 AM Clinical history: Multiple joint pain Comparison: No prior exam Technique: AP and lateral views left ankle. AP and lateral views left foot. Images obtained without weightbearing. Findings: Ankle mortise appears unremarkable. Tibiotalar and subtalar joints appear unremarkable. No evidence of fracture or acute osseous abnormality involving the left distal tibia, fibula, or about the left ankle. Minimal plantar and Achilles calcaneal spurring. Hypertrophic spurring dorsal aspect midfoot consistent with degenerative change involving the second through fourth tarsal-metatarsal joints. No evidence of fracture or acute osseous abnormality throughout the left foot. No evidence of abnormal soft tissue densities. Procedure Note Preet Escobedo MD - 04/08/[address] [address] Examination: XR ANKLE LT 2V, XR FOOT LT 2V Exam time: 04/03/2025 10:11 AM Clinical history: Multiple joint pain Comparison: No prior exam Technique: AP and lateral views left ankle. AP and lateral views leftfoot. Images obtained without weightbearing. Findings: Ankle mortise appears unremarkable. Tibiotalar and subtalarjoints appear unremarkable. No evidence of fracture or acute osseousabnormality involving the left distal tibia, fibula, or about the leftankle. Minimal plantar and Achilles calcaneal spurring. Hypertrophicspurring dorsal aspect midfoot consistent with degenerative changeinvolving the second through fourth tarsal-metatarsal joints. No evidenceof fracture or acute osseous abnormality throughout the left foot. Noevidence of abnormal soft tissue densities. IMPRESSION: 1. No acute abnormality identified. 2. Degenerative changes as described. Ordered By: VIC OVIEDO Interpreted By: Preet Escobedo MD, 04/08/2025 3:[address] [facility] GENERAL IMAGING Final Result * XR WRIST RT 2V (04/03/2025 10:31 AM CDT) Anatomical Region Laterality Modality Wrist Radiographic Evie ging 04/08/2025 3:03 PM CDT Impressions 04/08/2025 3:05 PM CDT IMPRESSION: 1. No acute osseous abnormality. 2. Osteoarthritic degenerative changes as described. 3. Slight prominence of the space between the scaphoid and lunate bone and scapholunate ligament disruption is not excluded. Ordered By: VIC OVIEDO Interpreted By: Preet Escobedo MD, 04/08/2025 3:03 PM Narrative 04/08/2025 3:05 PM CDT [address] [address] Examination: XR WRIST RT 2V, XR HAND RT 2V Exam time: 04/03/2025 10:11 AM Clinical history: Multiple joint pain Comparison: No prior exam Technique: AP and lateral views right wrist. AP and lateral views right hand. Findings: There is no evidence of fracture or acute osseous abnormality right distal radius or ulna. No evidence of fracture or acute osseous abnormality throughout the carpal bones. There is slight prominence of the space between the scaphoid and the lunate bone and scapholunate ligament disruption is not excluded. There is moderate osteoarthritic degenerative change involving the right first carpal-metacarpal joint. There is relatively prominent osteoarthritic degenerative change involving the right first interphalangeal joint and the second through fifth DIP joints as well as the fourth and fifth PIP joints and there is minimal osteoarthritic degenerative change involving the second and third PIP joints. No evidence of fracture or acute osseous abnormality throughout the right hand. No evidence of subluxation or dislocation. Procedure Note Preet Escobedo MD - 04/08/[address] [address] Examination: XR WRIST RT 2V, XR HAND RT 2V Exam time: 04/03/2025 10:11 AM Clinical history: Multiple joint pain Comparison: No prior exam Technique: AP and lateral views right wrist. AP and lateral views righthand. Findings: There is no evidence of fracture or acute osseous abnormalityright distal radius or ulna. No evidence of fracture or acute osseousabnormality throughout the carpal bones. There is slight prominence of thespace between the scaphoid and the lunate bone and scapholunate ligamentdisruption is not excluded. There is moderate osteoarthritic degenerativechange involving the right first carpal-metacarpal joint. There isrelatively prominent osteoarthritic degenerative change involving theright first interphalangeal joint and the second through fifth DIP jointsas well as the fourth and fifth PIP joints and there is minimalosteoarthritic degenerative change involving the second and third PIPjoints. No evidence of fracture or acute osseous abnormality throughoutthe right hand. No evidence of subluxation or dislocation. IMPRESSION: 1. No acute osseous abnormality. 2. Osteoarthritic degenerative changes as described. 3. Slight prominence of the space between the scaphoid and lunate boneand scapholunate ligament disruption is not excluded. Ordered By: VIC OVIEDO Interpreted By: Preet Escobedo MD, 04/08/2025 3:[address] [facility] GENERAL IMAGING Final Result * XR WRIST LT 2V (04/03/2025 10:31 AM CDT) Anatomical Region Laterality Modality Wrist Radiographic Evie ging 04/08/2025 3:02 PM CDT Impressions 04/08/2025 3:03 PM CDT IMPRESSION: 1. No acute osseous abnormality. 2. Osteoarthritic degenerative changes as described. 3. Slight prominence scapholunate space. Scapholunate ligament disruption not excluded. Ordered By: VIC OVIEDO Interpreted By: Preet Escobedo MD, 04/08/2025 3:02 PM Narrative 04/08/2025 3:03 PM CDT [address] [address] Examination: XR WRIST LT 2V, XR HAND LT 2V Exam time: 04/03/2025 10:11 AM Clinical history: Multiple joint pain Comparison: No prior exam Technique: AP and lateral views left wrist. AP and lateral views left hand. Findings: Left distal radius and ulna appear unremarkable. No evidence of fracture or acute osseous abnormality involving the left wrist. There is moderate osteoarthritic degenerative change involving the left carpal-metacarpal joint. There is slight prominence of the scapholunate space. Scapholunate ligament disruption not excluded. There are prominent osteoarthritic degenerative changes involving the left first interphalangeal joint and the second through fifth DIP joints as well as the fourth and fifth PIP joints. This consist of joint space loss and hypertrophic spurring changes. No evidence of subluxation or dislocation. No evidence of abnormal soft tissue densities. Procedure Note Preet Escobedo MD - 04/08/[address] [address] Examination: XR WRIST LT 2V, XR HAND LT 2V Exam time: 04/03/2025 10:11 AM Clinical history: Multiple joint pain Comparison: No prior exam Technique: AP and lateral views left wrist. AP and lateral views lefthand. Findings: Left distal radius and ulna appear unremarkable. No evidence offracture or acute osseous abnormality involving the left wrist. There ismoderate osteoarthritic degenerative change involving the leftcarpal-metacarpal joint. There is slight prominence of the scapholunatespace. Scapholunate ligament disruption not excluded. There are prominent osteoarthritic degenerative changes involving the leftfirst interphalangeal joint and the second through fifth DIP joints aswell as the fourth and fifth PIP joints. This consist of joint space lossand hypertrophic spurring changes. No evidence of subluxation ordislocation. No evidence of abnormal soft tissue densities. IMPRESSION: 1. No acute osseous abnormality. 2. Osteoarthritic degenerative changes as described. 3. Slight prominence scapholunate space. Scapholunate ligament disruptionnot excluded. Ordered By: VIC OVIEDO Interpreted By: Preet Escobedo MD, 04/08/2025 3:02 PM Vic Oivedo ASSISTANT FARM OPERATIONS MANAGER GENERAL IMAGING Final Result * XR SI JOINTS (04/03/2025 10:31 AM CDT) Anatomical Region Laterality Modality Pelvis Radiographic Evie ging 04/08/2025 2:57 PM CDT Impressions 04/08/2025 2:58 PM CDT IMPRESSION: No radiographic abnormality of the sacroiliac joints. Ordered By: VIC OVIEDO Interpreted By: Preet Escobedo MD, 04/08/2025 2:57 PM Narrative 04/08/2025 2:58 PM CDT [facility] [address] [place], [place] [address] Examination: XR SI JOINTS Exam time: 04/03/2025 10:11 AM Clinical history: Multiple joint pain Comparison: No prior exam Technique: AP and bilateral oblique views Findings: Sacroiliac joints are normal in width. No evidence of significant periarticular sclerosis or erosions. Visualized portions of the sacrum appear unremarkable with intact sacral ala. Bilateral facet joint degenerative change lumbosacral junction. Rounded calcifications right side of pelvis most consistent with phleboliths. Procedure Note Preet Escobedo MD - 04/08/[address] [address] Examination: XR SI JOINTS Exam time: 04/03/2025 10:11 AM Clinical history: Multiple joint pain Comparison: No prior exam Technique: AP and bilateral oblique views Findings: Sacroiliac joints are normal in width. No evidence ofsignificant periarticular sclerosis or erosions. Visualized portions ofthe sacrum appear unremarkable with intact sacral ala. Bilateral facetjoint degenerative change lumbosacral junction. Rounded calcificationsright side of pelvis most consistent with phleboliths. IMPRESSION: No radiographic abnormality of the sacroiliac joints. Ordered By: VIC OVIEDO Interpreted By: Preet Escobedo MD, 04/08/2025 2:[address] [facility] GENERAL IMAGING Final Result * XR HAND RT 2V (04/03/2025 10:31 AM CDT) Anatomical Region Laterality Modality Hand Radiographic Evie ging 04/08/2025 3:03 PM CDT Impressions 04/08/2025 3:05 PM CDT IMPRESSION: 1. No acute osseous abnormality. 2. Osteoarthritic degenerative changes as described. 3. Slight prominence of the space between the scaphoid and lunate bone and scapholunate ligament disruption is not excluded. Ordered By: VIC OVIEDO Interpreted By: Preet Escobedo MD, 04/08/2025 3:03 PM Narrative 04/08/2025 3:05 PM CDT [address] [address] Examination: XR WRIST RT 2V, XR HAND RT 2V Exam time: 04/03/2025 10:11 AM Clinical history: Multiple joint pain Comparison: No prior exam Technique: AP and lateral views right wrist. AP and lateral views right hand. Findings: There is no evidence of fracture or acute osseous abnormality right distal radius or ulna. No evidence of fracture or acute osseous abnormality throughout the carpal bones. There is slight prominence of the space between the scaphoid and the lunate bone and scapholunate ligament disruption is not excluded. There is moderate osteoarthritic degenerative change involving the right first carpal-metacarpal joint. There is relatively prominent osteoarthritic degenerative change involving the right first interphalangeal joint and the second through fifth DIP joints as well as the fourth and fifth PIP joints and there is minimal osteoarthritic degenerative change involving the second and third PIP joints. No evidence of fracture or acute osseous abnormality throughout the right hand. No evidence of subluxation or dislocation. Procedure Note Preet Escobedo MD - 04/08/[address] [address] Examination: XR WRIST RT 2V, XR HAND RT 2V Exam time: 04/03/2025 10:11 AM Clinical history: Multiple joint pain Comparison: No prior exam Technique: AP and lateral views right wrist. AP and lateral views righthand. Findings: There is no evidence of fracture or acute osseous abnormalityright distal radius or ulna. No evidence of fracture or acute osseousabnormality throughout the carpal bones. There is slight prominence of thespace between the scaphoid and the lunate bone and scapholunate ligamentdisruption is not excluded. There is moderate osteoarthritic degenerativechange involving the right first carpal-metacarpal joint. There isrelatively prominent osteoarthritic degenerative change involving theright first interphalangeal joint and the second through fifth DIP jointsas well as the fourth and fifth PIP joints and there is minimalosteoarthritic degenerative change involving the second and third PIPjoints. No evidence of fracture or acute osseous abnormality throughoutthe right hand. No evidence of subluxation or dislocation. IMPRESSION: 1. No acute osseous abnormality. 2. Osteoarthritic degenerative changes as described. 3. Slight prominence of the space between the scaphoid and lunate boneand scapholunate ligament disruption is not excluded. Ordered By: VIC OVIEDO Interpreted By: Preet Escobedo MD, 04/08/2025 3:03 PM Vic Oviedo ASSISTANT FARM OPERATIONS MANAGER GENERAL IMAGING Final Result * XR HAND LT 2V (04/03/2025 10:31 AM CDT) Anatomical Region Laterality Modality Hand Radiographic Evie ging 04/08/2025 3:02 PM CDT Impressions 04/08/2025 3:03 PM CDT IMPRESSION: 1. No acute osseous abnormality. 2. Osteoarthritic degenerative changes as described. 3. Slight prominence scapholunate space. Scapholunate ligament disruption not excluded. Ordered By: VIC OVIEDO Interpreted By: Preet Escobedo MD, 04/08/2025 3:02 PM Narrative 04/08/2025 3:03 PM CDT [address] [address] Examination: XR WRIST LT 2V, XR HAND LT 2V Exam time: 04/03/2025 10:11 AM Clinical history: Multiple joint pain Comparison: No prior exam Technique: AP and lateral views left wrist. AP and lateral views left hand. Findings: Left distal radius and ulna appear unremarkable. No evidence of fracture or acute osseous abnormality involving the left wrist. There is moderate osteoarthritic degenerative change involving the left carpal-metacarpal joint. There is slight prominence of the scapholunate space. Scapholunate ligament disruption not excluded. There are prominent osteoarthritic degenerative changes involving the left first interphalangeal joint and the second through fifth DIP joints as well as the fourth and fifth PIP joints. This consist of joint space loss and hypertrophic spurring changes. No evidence of subluxation or dislocation. No evidence of abnormal soft tissue densities. Procedure Note Preet Escobedo MD - 04/08/2025 [facility] [address] [place], [place] [address] Examination: XR WRIST LT 2V, XR HAND LT 2V Exam time: 04/03/2025 10:11 AM Clinical history: Multiple joint pain Comparison: No prior exam Technique: AP and lateral views left wrist. AP and lateral views lefthand. Findings: Left distal radius and ulna appear unremarkable. No evidence offracture or acute osseous abnormality involving the left wrist. There ismoderate osteoarthritic degenerative change involving the leftcarpal-metacarpal joint. There is slight prominence of the scapholunatespace. Scapholunate ligament disruption not excluded. There are prominent osteoarthritic degenerative changes involving the leftfirst interphalangeal joint and the second through fifth DIP joints aswell as the fourth and fifth PIP joints. This consist of joint space lossand hypertrophic spurring changes. No evidence of subluxation ordislocation. No evidence of abnormal soft tissue densities. IMPRESSION: 1. No acute osseous abnormality. 2. Osteoarthritic degenerative changes as described. 3. Slight prominence scapholunate space. Scapholunate ligament disruptionnot excluded. 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 Palpable abnormality should be managed on a clinical basis including decision as to whether to acquire additional imaging or acquire surveillance follow-up imaging. Ordered By: NATI ANDREWS Interpreted By: Andrea Valentine, 02/11/2025 7:26 AM Narrative 02/11/2025 7:30 AM CDT [address] [address] IMAGING STUDIES: US SOFT TISS LOW BACK OR ABD WALL DATE: 02/09/2025 8:05 AM HISTORY: GENERALIZED INTRA-ABDOMINAL AND PELVIC SWELLING, MASS AND LUMP 64-year-old female. Patient reports 50 pound weight loss and has subsequently noticed a lump to the upper abdomen. On physical exam it is likely the sternal xiphoid process but requested ultrasound evaluation. COMPARISON: None at this institution. DISCUSSION: Longitudinal and transverse grayscale imaging of the patient's reported palpable abnormality which corresponds to the xiphoid process. No focal ultrasound abnormality. Procedure Note Andrea Valentine MD - 02/11/[address] [address] IMAGING STUDIES: US SOFT TISS LOW BACK OR ABD WALLDATE: 02/09/2025 8:05AM HISTORY: GENERALIZED INTRA-ABDOMINAL AND PELVIC SWELLING, MASS AND [id number] female. Patient reports 50 pound weight loss and hassubsequently noticed a lump to the upper abdomen. On physical exam it islikely the sternal xiphoid process but requested ultrasound evaluation. COMPARISON: None at this institution. DISCUSSION: Longitudinal and transverse grayscale imaging of the patient's reportedpalpable abnormality which corresponds to the xiphoid process. No focalultrasound abnormality. IMPRESSION: Patient's palpable abnormality corresponds to the xiphoid process asreportedly suspected on physical exam. Palpable abnormality should bemanaged on a clinical basis including decision as to whether to acquireadditional imaging or acquire surveillance follow-up imaging. Ordered By: NATI ANDREWS Interpreted By: Andrea Valentine, 02/11/2025 7:26 AM Nati SPEARS ULTRASOUND Final Result from Last 3 Months Insurance [facility] Care Teams [employer] Operator Relationship Specialty Start Date End Date Nati Andrews APNP [address] [facility] [address] [place] [id number] PCP - General Nurse Practitioner Family 02/04/25
--- OUTSIDE RECORDS SUMMARY | 2025-04-24 15:30 | XMS_ITS | Data Portability ---
Author Organization [employer], [facility] [employer] - Fredi Whitney MD PC - PAT Address [address] [place] [id number] Care Team Providers Care Windows Application Administrator Name Role Phone FROY SMALL Primary Care Provider Assessment Encounter Date Assessment Date Assessment LastModified by Organization Details LastModified Time 07/23/2014 07/23/2014 Annual High Rigger Exam [email or web address] Not available 07/24/2014 11:10:45 09/23/2015 09/23/2015 Annual High Rigger Exam [email or web address] Not available 09/27/2015 10:25:15 Plan of Treatment Reminders Order Date Submit Date Provider Last Modified By Organization Details Last Modified Time Details Appointments None recorded. Lab pap, LB 2016 017 [facility], [address] [place] [address], [address], 7 17:04:30 pap, LB + reflex HR HPV 2015 016 Not available 6 15:21:51 pap, LB + reflex HR HPV 2014 015 Not available 5 15:42:45 lh + FSH, serum 2014 015 Not available 5 15:42:45 estradiol (E2), free, serum 2014 015 Not available 5 15:42:45 lh + FSH, serum 2014 015 Not available 5 15:42:44 estradiol (E2), free, serum 2014 015 Not available 5 15:42:44 Referral None recorded. Procedures None recorded. Surgeries None recorded. Imaging MAMMO, screening, digital, bilateral 2016 017 [facility]iology [address], [facility] [address], [place], [place], , 7 13:56:52 XR, chest, 2 view 2016 017 [facility], [address] [place] [address], [facility] [address], [place], , 7 14:21:28 MAMMO, screening, digital, bilateral 2015 016 Not available 6 15:21:51 MAMMO, screening, digital, bilateral 2014 015 Not available 5 15:42:45 bone density study 2014 015 Not available 5 15:42:45 Medication Orders Divigel 0.25 mg/0.25 gram (0.1 %) transdermal gel packet 2014 015 Not available 6 11:58:03 Patient TargetsNo targets recorded. Patient Instructions Encounter Date Encounter Id Patient Instructions Last Modified By Organization Details Last Modified Time 07/23/2014 [id number] menopausal hormone therapy (ht): care instructions Not available 08/10/2014 13:19:35 Patient will patrica l after mammogram and we will refer to breast specialist if necessary. [email or web address] Not available 07/24/2014 11:10:45 11/08/2015 [id number] breast pain: car e instructions Not available 11/10/2015 17:33:07 breast lumps: care instructions Not available 11/10/2015 17:33:07 12/13/2016 [id number] brca TROY Not available 01/14 05:04:31 Not available 2016 10:07:53 Patient to see PCP after chest xray. Not available 12/13/2016 10:08:49 Reason for Referral None Reported. Results Created Date Observation Date Name Description Value Unit Range Abnormal Flag Note LastModifiedBy Organization Detail LastModifiedTime 07/23/19 15 07/24/2014 lh + FSH, serum FSH 3.4 mIU/m L normal Refer ence Range s: Male: 1.4 - 18.1 mIU/m L Femal e: Folli cular Phase 2.5 - 10.2 mIU/m L MidCy gregorio Peak 3.4 - 33.4 mIU/m L Lutea l Phase 1.5 - 9.1 mIU/m L Post Menop ausal 23.0 - 116.3 mIU/m L Pregn ant < 0.3 mIU/m L Not Available [facility] [address] [facility] [place], [address], 07/24/2014 06:11:18 07/23/19 15 07/24/2014 lh + FSH, serum LH 3.9 mIU/m L normal Refer ence Range s: Male: 20 - 70 Years 1.5 - 9.3 mIU/m L > 70 Years 3.1 - 34.6 mIU/m L Femal e: Folli cular Phase 1.9 - 12.5 mIU/m L Midcy gregorio 8.7 - 76.3 mIU/m L Lutea l Phase 0.5 - 16.9 mIU/m L Post Menop ausal 15.9 - 54.0 mIU/m L Pregn ant < 1.5 mIU/m L Contr acept cary 0.7 - 5.6 mIU/m L Child trista: < 6.0 mIU/m L Not Available [facility] [address] [place], [address], 07/24/2014 06:11:18 07/23/19 15 07/24/2014 estra diol, serum estradiol 84.1 pg/mL normal Males 0.0 - 39.0 pg/mL Menst ruati ng Femal es (by day in cycle relat [place] to LH peak) Folli cular phase (-12 to -4) 19.5 - 144.2 pg/mL Midcy gregorio (-3 to +2) 63.9 - 356.7 pg/mL Postm enopa usal Femal es 0.0 - 32.2 pg/mL (untr eated ) Not Available [facility] [place] [address] [facility] [place], [address], 07/24/2014 06:11:19 07/23/19 15 07/24/2014 pap, LB + CT + refle x HR HPV if ASC-U HPV DNA, high risk NOT DETECT ED normal HIGH RISK HPV types (16,1 8,31, 33,35 ,39,4 5,51, 52,56 ,58,5 9,66, 68) were not detec gwendolyn. Other HPV types which cause anoge nital lesio ns may be prese nt. The signi fican ce of the other types of HPV in [facility] sses has not been estab lishe d. Jenna l Refer ence Range : Not Detec gwendolyn Testi ng perfo rmed using the Kameron Dorota HPV Test. Not Available [facility] [place] [address] [facility] [place], [address], 07/24/2014 18:25:09 07/23/19 15 07/24/2014 pap, LB + CT + refle x HR HPV if ASC-U source Cervic al/end ocervi patrica normal Not Available [facility] [address] [place], [address], 07/24/2014 18:25:09 07/23/19 15 07/24/2014 pap, LB + CT + refle x HR HPV if ASC-U number of slides/vials : 1 Vial Submit gwendolyn normal Not Available [facility] [address] [place], [address], 07/24/2014 18:25:09 07/23/19 15 07/24/2014 pap, LB + CT + refle x HR HPV if ASC-U source: Cervic al/end ocervi patrica normal Not Available [facility] [address] [place], [address], 07/24/2014 18:25:09 07/23/19 15 07/24/2014 pap, LB + CT + refle x HR HPV if ASC-U clinical information: ANNUAL normal Not Available [facility] [place] [address] [facility] [place], [address], 07/24/2014 18:25:09 07/23/19 15 07/24/2014 pap, LB + CT + refle x HR HPV if ASC-U specimen adequacy: normal SATIS FACTO RY. Endoc ervic al/tr ansfo rmati on zone compo nent prese nt. Not Available [facility] [address] [place], [address], 07/24/2014 18:25:09 07/23/19 15 07/24/2014 pap, LB + CT + refle x HR HPV if ASC-U final diagnosis: normal - NEGAT [place] FOR INTRA EPITH ELIAL LESIO NS OR MALDOMINQIUE RORY . Not Available [facility] [address] [place], [address], 07/24/2014 18:25:09 07/23/19 15 07/24/2014 pap, LB + CT + refle x HR HPV if ASC-U cytotechnolo gist: normal JLT, BS CT( CP) * The Pap smear is a scree mukul test used to detec t cervi patrica cance r and its precu rsors . It shoul d not be used as the sole means to detec t cervi patrica cance r. Test resul ts shoul d be corre lated with clini patrica findi ngs. The Pap test is unrel iable for detec ting endom etria l lesio ns and shoul d not be used to evalu ate endom etria l abnor malit ies. Data indic ate the Pap test is subje ct to false negat [place] and false posit [place] resul ts. There fore, perio dic repea t testi ng and follo w-up of any unexp flor d clini patrica signs and sympt oms are recom ravinder Roberts s, Cytol ogy Medic al Direc tor Not Available [facility] [address] [place], [address], 07/24/2014 18:25:09 09/23/19 16 09/24/2015 pap, LB + HR HPV + refle x HPV (16+1 8) number of slides/vials : 1 Vial Submit gwendolyn normal Not Available [facility] [place] [address] [place], [address], 09/27/2015 13:22:09 09/23/19 16 09/24/2015 pap, LB + HR HPV + refle x HPV (16+1 8) source: Cervic al/end ocervi patrica normal Not Available [facility] [address] [place], [address], 09/27/2015 13:22:09 09/23/19 16 09/24/2015 pap, LB + HR HPV + refle x HPV (16+1 8) clinical information: ANNUAL normal Not Available [facility] [address] [place], [address], 09/27/2015 13:22:09 09/23/19 16 09/24/2015 pap, LB + HR HPV + refle x HPV (16+1 8) specimen adequacy: normal SATIS FACTO RY. Endoc ervic al/tr ansfo rmati on zone compo nent absen t/ins [facility] ient. Not Available [facility] [place] [address] [place], [address], 09/27/2015 13:22:09 09/23/19 16 09/24/2015 pap, LB + HR HPV + refle x HPV (16+1 8) final diagnosis: normal - NEGAT [place] FOR INTRA EPITH ELIAL LESIO NS OR MALIG RORY . Not Available [facility] [place] [address] [place], [address], 09/27/2015 13:22:09 09/23/19 16 09/24/2015 pap, LB + HR HPV + refle x HPV (16+1 8) cytotechnolo gist: normal JWW, BS CT( CP), MARBLE SETTER(A SCP) * The Pap smear is a scree mukul test used to detec t cervi patrica cance r and its precu rsors . It shoul d not be used as the sole means to detec t cervi patrica cance r. Test resul ts shoul d be corre lated with clini patrica findi ngs. The Pap test is unrel iable for detec ting endom etria l lesio ns and shoul d not be used to evalu ate endom etria l abnor malit ies. Data indic ate the Pap test is subje ct to false negat [place] and false posit [place] resul ts. There fore, perio dic repea t testi ng and follo w-up of any unexp flor d clini patrica signs and sympt oms are recom ravinder d. Dr. Mu conroy Field s, Cytol ogy Medic al Direc tor Not Available [facility] [address] [facility] [place], [address], 09/27/2015 13:22:09 09/23/19 16 09/27/2015 pap, LB + HR HPV + refle x HPV (16+1 8) HPV DNA, high risk NOT DETECT ED normal HIGH RISK HPV types (16,1 8,31, 33,35 ,39,4 5,51, 52,56 ,58,5 9,66, 68) were not detec gwendolyn. Other HPV types which cause anoge nital lesio ns may be prese nt. The signi fican ce of the other types of HPV in malig nant proce sses has not been estab lishe d. Jenna l Refer ence Range : Not Detec gwendolyn Testi ng perfo rmed using the Kameron Dorota HPV Test. Not Available [facility] [address] [facility] [place], [address], 09/27/2015 13:22:09 09/23/19 16 09/27/2015 pap, LB + HR HPV + refle x HPV (16+1 8) source Cervic al/end ocervi patrica normal Not Available [facility] [address] [facility] [place], [address], 09/27/2015 13:22:09 12/14/19 17 12/20/2016 pap, IG + HPV mRNA E6/E7 + refle x HPV (16+1 8+45) clinical information: None given normal Not Available [facility] - [place], [address], 12/20/2016 17:04:30 12/14/19 17 12/20/2016 pap, IG + HPV mRNA E6/E7 + refle x HPV (16+1 8+45) LMP: UNK normal Not Available [facility] - [employer] [facility] [place], [address], 12/20/2016 17:04:30 12/14/19 17 12/20/2016 pap, IG + HPV mRNA E6/E7 + refle x HPV (16+1 8+45) prev. Pap: UNK normal Not Available [facility] [place], [address], 12/20/2016 17:04:30 12/14/19 17 12/20/2016 pap, IG + HPV mRNA E6/E7 + refle x HPV (16+1 8+45) prev. BX: UNK normal Not Available [facility], [address], 12/20/2016 17:04:30 12/14/19 17 12/20/2016 pap, IG + HPV mRNA E6/E7 + refle x HPV (16+1 8+45) source: Cervix , Endoce rvix normal Not Available [facility] [place], [address], 12/20/2016 17:04:30 12/14/19 17 12/20/2016 pap, IG + HPV mRNA E6/E7 + refle x HPV (16+1 8+45) statement of adequacy: normal Satis facto ry for evalu ation . Endoc ervic al/tr ansfo rmati on zone compo nent prese nt. Not Available [facility] [address] [place], [address], 12/20/2016 17:04:30 12/14/19 17 12/20/2016 pap, IG + HPV mRNA E6/E7 + refle x HPV (16+1 8+45) interpretati on/result: Negati ve for intrae pithel ial lesion or malign iron. normal Not Available [facility] [address] [place], [address], 12/20/2016 17:04:30 12/14/19 17 12/20/2016 pap, IG + HPV mRNA E6/E7 + refle x HPV (16+1 8+45) comment: This Pap test has been evalua gwendolyn with comput er assist ed techno logy. normal Not Available [facility] [address] [place], [address], 12/20/2016 17:04:30 12/14/19 17 12/20/2016 pap, IG + HPV mRNA E6/E7 + refle x HPV (16+1 8+45) cytotechnolo gist: normal BES,C T(ASC P) Ct Scree mukul Locat ion: [place] [address] [place] [address] Not Available [facility] [address] [place], [address], 12/20/2016 17:04:30 12/14/19 17 12/20/2016 pap, IG + HPV mRNA E6/E7 + refle x HPV (16+1 8+45) HPV MRNA E6/E7 Not Detect ed not detect ed normal This test was perfo rmed using the APTIM A HPV Assay ([employer] . This assay detec ts E6/E7 viral messe nger RNA (mRNA ) from 14 high- risk HPV types (16,1 8,31, 33,35 ,39,4 5,51, 52,56 ,58,5 9,66, 68). 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 Gross Descr iptio n: Speci men consi sts of 2 peterson/g ray skin cover ed polyp oid piece s of tissu e measu ring 0.2 and 0.4 cm in [facility] yumi. The base is inked blue, the large r polyp is bisec gwendolyn and speci men is entir sahara submi tted in one casse tte. Elect patricia Keenan d By: Azael Hall M.D. AP [facility] - Sunri se Medic al Labor atori es CLIA# [id number] [address] [place] [address] Lab Direc tor: Wanda cameron MD Not Available [facility] -[address] [place], [place], , 10/15/2017 17:30:18 07/30/19 15 07/30/2014 imagi ng/di agnos tic resul t No observ ation record ed. [address], , 09/02/2014 13:43:43 08/05/19 15 08/05/2014 imagi ng/di agnos tic resul t No observ ation record ed. [address], , 08/06/2014 17:08:17 08/11/19 15 08/05/2014 imagi ng/di agnos tic resul t No observ ation record ed. [address], [place], [address], 09/02/2014 13:43:43 08/12/19 15 07/30/2014 imagi ng/di agnos tic resul t No observ ation record ed. [email or web address] Not Available 2015 10:25:16 09/17/19 16 imagi ng/di agnos tic resul t No observ ation record ed. Not Available 2015 13:30:46 10/11/19 16 10/11/2015 MAMMO , scree mukul, digit al, bilat eral No observ ation record ed. [address] Rad[facility] [place] [address], [place], [place], , 10/18/2015 12:22:29 10/18/19 16 10/18/2015 biops y, breas t (PROC ) No observ ation record ed. [address], [place], , 10/26/2015 17:32:17 10/18/19 16 10/18/2015 biops y, breas t (PROC ) No observ ation record ed. [place] [address], [place], [place], , 10/26/2015 17:32:02 10/22/19 16 10/22/2015 biops y, breas t (PROC ) No observ ation record ed. [email or web address] Not Available 2015 15:38:47 11/09/19 16 11/08/2015 breas t ultra sound , limit ed No observ ation record ed. [address] Radiology Center [address] [facility] [address], [place], , 11/10/2015 13:15:26 06/08/20 16 06/08/2016 US, marcie t No observ ation record ed. [email or web address] Not Available 2016 14:21:32 01/10/20 17 01/09/2017 MAMMO , scree mukul, digit al, bilat eral No observ ation record ed. [email or web address] Milly Chivo [address] [facility] [address], [place], [place], , 01/11/2017 16:42:52 01/10/20 17 01/09/2017 XR, chest , 2 view No observ ation record ed. [email or web address] [facility] [address], [place], [place], , 01/11/2017 16:42:51 Result Notes None recorded. Problems Name Problem SNOMED Code Status Onset Date Resolution Date Notes Provider Name and Address Organization Details Recorded Time Breast lump 98227055 Active Basilia Mcdonnell NP [address], [place], [address] , [facility] 11/08/2015 13:24:30 Pain of breast 80805142 Active Basilia Mcdonnell NP [address], [place], [address] , [facility] 11/08/2015 13:24:30 Problem Notes None recorded. Procedures Surgical History Date Name Laterality Status Provider Name and Address Organization Details Recorded Time 10/11/19 18 Skin Tag Removal completed Mariah Nixon MD [address], [place], [address], [facility] 10/10/2017 16:08:40 05/18/20 13 Date of Last Pap Smear completed [facility] 07/23/2014 11:49:43 04/01/20 13 Most Recent Mammogram completed [facility] 07/23/2014 11:49:43 11/17/19 12 Gastrointestinal Bypass Surgery completed [facility] 07/23/2014 11:50:31 07/28/19 11 Date of Last Colonoscopy completed [facility] 07/23/2014 11:49:43 11/17/19 10 Colonoscopy completed Farzana [facility] 07/23/2014 11:50:31 02/17/20 06 Orthopedic Surgery completed Farzana [facility] 07/23/2014 11:50:31 02/17/20 06 Back / Spine Surgery completed Farzana [facility] 07/23/2014 11:50:31 06/18/19 05 Dilation and Curettage completed Farzana [facility] 07/23/2014 11:50:31 06/18/19 05 Hysterectomy with Oopherectomy (ovaries removed) completed [facility] 07/23/2014 11:50:31 07/19/19 02 completed [facility] 07/23/2014 11:57:48 07/19/18 95 Dilation and Curettage completed [facility] 07/23/2014 11:50:31 07/19/18 90 Endometrial Biopsy completed [facility] 07/23/2014 11:50:31 12/16/18 83 Caesarean Section completed [facility] 07/23/2014 11:50:31 07/19/18 80 Caesarean Section completed [facility] 07/23/2014 11:50:31 Imaging Results None recorded. Procedure Notes None recorded. Medical Equipment None Reported. Allergies Allergen ID Allergen Name Allergen Category Reaction Reaction Severity Criticality Documentation Date Start Date Code Code System Note Provider Name and Address Organization Details Recorded Time 400870 morphine medicatio n hives severe Not available 07/23/20142004 7052 RxNorm Farzanadarlene Ly [facility] 5 11:49:12 Medications Name Sig Start Date Stop Date Status Note LastModified by Organization Details LastModified Time fluoxetine 40 mg capsule Take 1 capsule every day by oral route. active Not Available Not Available No t Available cyclobenzap rine 10 mg tablet active Not Available Not Available Not Available amoxicillin 500 mg capsule 10/10 completed Not Available Not Available Not Available clindamycin HCl 300 mg capsule 10/10 completed Not Available Not Available Not Available tramadol 37.5 mg-acetamin ophen 325 mg tablet active Not Available Not Available No t Available tizanidine 4 mg tablet active Not Available Not Available Not Available meloxicam 15 mg tablet active Not Available Not Available Not Available topiramate 25 mg tablet active Not Available Not Available Not Available sulfamethox azole 800 mg-trimetho prim 160 mg tablet active Not Available Not Available Not Available oxycodone-a cetaminophe n 5 mg-325 mg tablet active Not Available Not Available No t Available amoxicillin 875 mg tablet 10/10 completed Not Available Not Available Not Available tamsulosin 0.4 mg capsule active Not Available Not Available Not Available dextroamphe tamine-amph etamine ER 20 mg 24hr capsule,ext end release active Not Available Not Available Not Available simvastatin 20 mg tablet 1 tablet every day by oral route. active Not Available Not Available No t Available Fluoxetine 20 mg capsule 40 mg every day by oral route. 1994 active Not Available Not Available Not Avai lable metoprolol tartrate 50 mg tablet active Not Available Not Available No t Available hydrochloro thiazide 12.5 mg capsule 1 capsule every day by oral route. active Not Available Not Available No t Available dextroamphe tamine-amph etamine ER 10 mg 24hr capsule,ext end release active Not Available Not Available Not Available amoxicillin 400 mg/5 mL oral suspension 10/10 completed Not Available Not Available Not Available ibuprofen 600 mg tablet active Not Available Not Available Not Available Vitamin D2 1,250 mcg (50,000 unit) capsule active Not Available Not Available Not Available ondansetron 4 mg disintegrat ing tablet active Not Available Not Available N ot Available topiramate 100 mg tablet active Not Available Not Available Not Available fluoxetine 20 mg capsule active Not Available Not Available Not Available fluticasone propionate 50 mcg/actuati on nasal spray,suspe nsion active Not Available Not Available Not Available ramipril 5 mg capsule 1 capsule every day by oral route. active Not Available Not Available No t Available amoxicillin 875 mg-potassiu m clavulanate 125 mg tablet 10/10 completed Not Available Not Available Not Available amoxicillin 500 mg-potassiu m clavulanate 125 mg tablet active Not Available Not Available Not Available neomycin-po lymyxin-hyd rocort 3.5 mg-10,000 unit/mL-1 % ear drops,susp 10/10 completed Not Available Not Available Not Available metoprolol tartrate 25 mg tablet 1 tablet every day by oral route. active Not Available Not Available No t Available Lyrica 75 mg capsule active Not Available Not Available N ot Available hydrocodone 5 mg-acetamin ophen 300 mg tablet active Not Available Not Available No t Available Strattera 80 mg capsule active Not Available Not Available Not Available hydrochloro thiazide 12.5 mg tablet active Not Available Not Available Not Available Divigel 0.25 mg/0.25 gram (0.1 %) transdermal gel packet Apply 1 packet every day by topical route as directed for 30 days. 2014 active Not Available Not Available Not Avai lable Vyvanse 20 mg capsule active Not Available Not Available N ot Available Adacel (Tdap Adolesn/Silverio lt)(PF)2 Lf-(2.5-5-3 -5)-5 Lf/0.5 mL IM syringe inject 0.5 millilite r intramusc ularly active Not Available Not Available No t Available Suprep Bowel Prep Kit 17.5 gram-3.13 gram-1.6 gram oral solution active Not Available Not Available Not Available Qsymia 3.75 mg-23 mg capsule, extended release active Not Available Not Available Not Available Afluria 0239-4669 (PF) 45 mcg(15 mcg x 3)/0.5 mL intramuscul ar syringe inject 0.5 millilite r intramusc ularly active Not Available Not Available No t Available Vitals Date Recorded Body weight Body height Body mass index (BMI) Systolic And Diastolic Provider Name and Address Organization Details Last Updated DateTime 07/23/2014 56068.403 71 g 157.48 cm 33.5 kg/m2 112/78 mm[Hg] [facility] 07/23/2014 11:58:57 Date Recorded Body mass index (BMI) Body height Body weight Heart rate Systolic And Diastolic Provider Name and Address Organization Details Last Updated DateTime 09/23/2015 34 kg/m2 157.48 cm 93290.18 082 g 75 /min 108/67 mm[Hg] [facility] 09/23/2015 11:56:39 Date Recorded Body height Body mass index (BMI) Body weight Heart rate Systolic And Diastolic Provider Name and Address Organization Details Last Updated DateTime 10/10/2017 157.48 cm 32.6 kg/m2 78963.44 g 76 /min 114/77 mm[Hg] [facility] 10/10/2017 14:44:29 Date Recorded Body height Heart rate Body mass index (BMI) Body weight Systolic And Diastolic Provider Name and Address Organization Details Last Updated DateTime 11/08/2015 157.48 cm 71 /min 33.3 kg/m2 24864.81 134 g 125/78 mm[Hg] Farzana Ly [facility] 11/08/2015 11:04:46 Date Recorded Body height Body mass index (BMI) Body weight Heart rate Systolic And Diastolic Provider Name and Address Organization Details Last Updated DateTime 12/13/2016 157.48 cm 33.8 kg/m2 90903.59 g 73 /min 107/64 mm[Hg] Lillie Nelson [facility] 12/13/2016 09:10:40 Social History Question Answer Notes LastModified by Organizat ion Details LastModified Time Tobacco Smoking Status [facility] 11:50:19 Animal Exposure? Yes Informat ion not available 07/23/2014 Do You Wear A Helmet When Biking? No Information not available 07/23/2014 Are You Blind Or Do You Have Difficulty Seeing? No Information not available 07/23/2014 What Is Your Level Of Caffeine Consumption? Heavy Information not available 07/23/2014 Are You Deaf Or Do You Have Serious Difficulty Hearing? No Information not available 07/23/2014 What Type Of Diet Are You Following? REGULAR Information not available 07/23/2014 Which Illicit Or Recreational Drugs Have You Used? None Information not available 07/23/2014 Education 2 Year College Information not available 07/23/2014 Are There Any Guns Present In Your Home? No Information not available 07/23/2014 Hobbies/Activitie s None Information not available 07/23/2014 Live Alone Or With Others? With Others Information not available 07/23/2014 Marital Status Informatio n not available 07/23/2014 How Many Children Do You Have? 3 Information not available 07/23/2014 Do You Use Protection During Sex? No Information not available 07/23/2014 Seat Belts Used Routinely Yes Information not available 07/23/2014 Are You Sexually Active? Yes Information not available 07/23/2014 Number Of Sexual Partners 1 Information not available 07/23/2014 Do You Have Smoke And Carbon Monoxide Detectors In Your Home? Yes Information not available 07/23/2014 Are You Passively Exposed To Smoke? No Information no t available 07/23/2014 General Stress Level High Information not available 07/23/2014 Do You Use Sunscreen Routinely? Yes Information not available 07/23/2014 How Many Years Have You Smoked Tobacco? 0 Information not available 07/23/2014 Do You Have Difficulty Walking Or Climbing Stairs? Yes Information not available 07/23/2014 Sex: Unknown Functional Status Question Answer Note LastModified by Organizat ion Details LastModified Time What is your level of alcohol consumption? Occasional Information not available 07/23/2014 Do you have difficulty doing errands alone? 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 No Information not available 07/23/2014 What is your exercise level? None Information not available 07/23/2014 Mental Status Question Answer Note LastModified by Organization D etails LastModified Time Do you have difficulty concentrating, remembering or making decisions? Yes Information no t available 07/23/2014 Family History Relationship Description Onset Age of this Age Resolved Age Notes LastModified by Organization Details LastModified Time Maternal Grandmother Cerebrovascu lar accident 93 Not available 10/2014 11:49:24 Maternal Grandmother Arthritis 93 Not available 10/2014 11:49:24 Mother Disorder of thyroid gland 45 Not available 2014 11:49:24 Mother Malignant neoplasm of colon 37 Not available 2014 11:49:24 Mother Allergy Not available 07/23/2014 11:49:24 Mother Anxiety disorder Not available 2014 11:49:24 Mother Hypertensive disorder Not available 2014 11:49:24 Mother Mental disorder Not available 2014 11:49:24 Father Obesity Not available 07/23/2014 11:49:24 Father Myocardial infarction 66 Not available 07/23 11:49:24 Father Heart failure Not available 2014 11:49:24 Father Heart disease 55 65 Not available 2014 11:49:24 Father Coronary arterioscler osis 65 66 Not available 2014 11:49:24 Father Hypertensive disorder Not available 2014 11:49:24 Maternal Grandfather Disorder of lung 60 65 Not available 2014 11:49:24 Maternal Grandfather Rheumatoid arthritis Not available 2014 11:49:24 Maternal Grandfather Heart disease 55 65 Not available 2014 11:49:24 Maternal Grandfather Heart failure Not available 2014 11:49:24 Maternal Grandfather Arthritis 66 Not available 10/2014 11:49:24 Brother Mental disorder Not available 2014 11:49:24 Brother Arthritis 57 Not availab le 07/23/2014 11:49:24 Brother Hypertensive disorder Not available 2014 11:49:24 Brother Rheumatoid arthritis 56 Not available 2014 11:49:24 Daughter Asthma 5 Not available 07/23/2014 11:49:24 Daughter High risk Not available 2014 11:49:24 Daughter Allergy 0 Not availabl e 07/23/2014 11:49:24 Daughter Anxiety disorder 25 Not available 2014 11:49:24 Sister Depressive disorder Not available 2014 11:49:24 Sister Hypertensive disorder Not available 2014 11:49:24 Sister Anxiety disorder 40 Not available 2014 11:49:24 Sister Mental disorder Not available 2014 11:49:24 Sister Arthritis 45 Not availabl e 07/23/2014 11:49:24 Sister Addiction 46 Not availabl e 07/23/2014 11:49:24 Sister Addiction 21 Not availabl e 07/23/2014 11:49:24 Sister Rheumatoid arthritis 14 Not available 2014 11:49:24 Sister Disorder of thyroid gland 23 Not available 2014 11:49:24 Medical History Condition Response Ear or Hearing Disorder N Coronary Artery Disease N HIV or AIDS N Gout N Other N Thyroid Disease N Atrial Fibrillation N Breast Cancer N Blood Transfusion N Congenital Heart Disease N Depression N Developmental or Behavioral Disorders N Pneumonia N Breast Disease N Pacemaker N Peripheral Arterial Disease N Hyperthyroidism (over active) N Allergies (environmental/food) N Anesthesia Complications Y Genitourinary Disease N Gastrointestinal Disease N Sinusitis N Cholelithiasis / Gallstones N Anxiety Disorder N Cystic Fibrosis N Obesity Y Chronic Obstructive Pulmonary Disease (C OPD) N Genetic / Hereditary Disorder N Arthritis Y Infertility N Seizures / Epilepsy N Renal / Kidney Disease N Congenital Disorder N Cancer N Varicosities N Hospitalization(s) Y Dermatologic Disorder N ADHD N Cardiovascular Disease N Vision / Eye Disorder N Aortic Aneurysm N Neurologic Disorder N Cerebrovascular Accident (Stroke) N Arrhythmia N Hepatic / Liver Disease N Fibromyalgia Y Headaches N Musculoskeletal Disease N Polycystic Ovarian Disease (PCOS) N Endocrine Disorder N Head Injury N Pulmonary / Lung Disease N Anticoagulant Therapy N Gastroesophageal Reflux Disease (GERD) N Migraines N Deep Venous Thrombosis N Transient Ischemic Attack N Anemia N Multiple Sclerosis N Immunologic Disorder N Psychiatric Illness N Ovarian Cancer N Diabetes Mellitus N Hypercholesterolemia (high cholesterol) N Autism Spectrum Disorder N Carotid Artery Disease N Heart Murmur N Hypertension (high blood pressure) Y Congestive Heart Failure (CHF) N Hypothyroidism (under active) N Valvular Heart Disease N Eczema N Abuse / Domestic Violence N Diverticulitis N Asthma N Sleep Apnea N Hepatitis N Bronchitis N Myocardial Infarction (heart attack) N Chicken Pox N Osteoporosis N Hematologic Disease N Gynecological History Statement/Question Response Abnormal Pap N Date of LMP 06/18/2004 Post Menopausal Bleeding N On BCP's at Conception? N STIs/STDs N HPV Vaccine N Most Recent Mammogram 04/01/2013 Age at Menarche 12 Current Control Method Hysterectom y Age at First Child 20 Date of Last Colonoscopy 2010 Sexually Active? Y Menses Monthly N Date of Last Pap Smear 05/18/2013 Sexual Problems? N LMP Approximate Hormone Replacement Therapy N Obstetrics History GPAL:G 3 P 3 0 0 3 Type Value Full Term 3 Living 3 Total 3 Immunizations Vaccine Type Date Status Note Provider Contreras e and Address Organization Details Recorded Time MMR 07/19/1964 completed [facility], [facility] 07/23/2014 11:50:39 influenza, unspecified formulation 03/18/2014 completed [facility], [facility] 07/23/2014 11:50:39 OPV, trivalent 07/19/1964 completed Far[facility]ana smart, [facility] 07/23/2014 11:50:39 varicella 07/19/1964 completed Far[facility]ana smart, [facility] 07/23/2014 11:50:39 polio, unspecified formulation 07/19/1964 completed [facility] smart, [facility] 07/23/2014 11:50:39 tetanus toxoid, unspecified formulation 07/19/1964 completed [facility] smart, [facility] 07/23/2014 11:50:39 Past Encounters Encounter ID Performer Location Encounter Start Date Encounter Closed Date Diagnosis/Indication Diagnosis SNOMED-CT Code Diagnosis ICD10 Code Diagnosis IMO Codes Diagnosis Note [id number] Mariah Nixon MD [facility]* [address] [place] [id number] 2 07/23/2014 11:47:07 2014 09:07:03 Hormone replacement therapy 252697014 Gynecologi c examination [id number] Mariah Nixon MD [facility] Office* [address] [place] [address] [id number] 09/23/2015 11:35:11 09/28/2015 16:26:01 Gynecologic examination 27022067 Z01.419 [id number] Basilia Mcdonnell NP [facility] Office* [address] [place] [address] [id number] 11/08/2015 10:31:10 11/08/2015 13:56:37 Breast lump [id number] N63 F/U with PCP related to pain over sternum Pain of breast 80654036 N64.4 [id number] Mariah Nixon MD [facility]* [address] [place] [address] [id number] 2 12/13/2016 09:06:55 12/13/2016 23:30:54 Gynecologic examination [id number] Z01.419 Pain of sternum 45623639 3 R07.2 Family his tory of cancer of colon 409280585 Z80.0 [id number] Mariah Nixon MD [facility] Office* [address] [place] [address] [id number] 10/10/2017 14:14:50 10/11/2017 10:45:11 Skin tag 405047035 L91.8 Health Concerns Section Related Observation LastModified by Organization Detai ls LastModified Time None Recorded Concern Status LastModified by Organization Details LastModified Time None Recorded Advance Directives Directive None Recorded Payers Insurance Date Sequence Insurance Name Policy Number Policy Goins Covered Member ID Goins Member ID Guarantor Name 10/10/2017 1 BIA (O) [id number] Umu Shah [id number] Umu Shah Notes Date Note Type Note Provider Name and Address Organization Details Recorded Time 07/23/2014 text/html HPI 53 y/o WF presents for annual. No complaints today. Patient had weight loss surgery but has put back on some of the weight. Had hysterectomy in 2004 with unilateral oophorectomy. No complaints today. Denies hot flushes or other menopausal complaints. Only complaint is breast tenderness in left breast, 11 oclock. No mass palpated. MD [address], [place], [address], [facility] 08/10/2014 13:19:38 09/23/2015 text/html HPI 55 y/o WF s/p hysterectomy presents for annual visit. Patient doing well, no bleeding. Patient due for mammogram. Patient had a normal DEXA in July, MD [address], [place], [address], [facility] 09/27/2015 10:25:26 11/08/2015 text/html HPI 55 year old presents complaining of breast pain left breast that started last week and became worse over the weekend. She reports a palpable mass, which she has had but is much larger. She had breast bx in 2 locations left breast 10/22/15. Basilia Mcdonnell, KRISTEN [address], [place], [address], [facility] 11/08/2015 13:25:04 12/13/2016 text/html 56 y/o WF presents for annual visit. Patient doing well, no complaints. She is due for a bilateral mammo and ultrasound of left breast. Patient's mom had colon cancer at age 37 so she is a candidate for genetic testing. Patient also complains of sternal pain for one year. She cannot remember an injury. Mariah Nixon MD [address], [place], [address], [facility] 12/13/2016 10:09:13 10/10/2017 text/html 57 y/o WF presents for removal of skin tag. Patient states that it has been present for six months and slightly irritating. Mariah Nixon MD [address], [place], [address], [facility] 10/10/2017 16:09:18 OBGyn Episode No OBEpisode recorded.
== END 2025-04-24 15:27 | disposition home or self-care (01) ==
PROVIDERS: PCP Nurse Practitioner Family; Visit Provider Nurse Practitioner Family
DX: M53.3 Sacrococcygeal disorders, not elsewhere classified (principal)
CPT/HCPCS: 72220